=== PATIENT | female | born 1970 | race Caucasian/White ===

== ENCOUNTER → 2016-09-29 | Outpatient (CLI) | payer OTHER | END | disposition home or self-care (01) | LOC: LABWHC1 10:49 | PROVIDERS: ATTEND Internal Medicine Critical Care Medicine | DX: J45.901 Unspecified asthma with (acute) exacerbation (principal) | CPT/HCPCS: 36415; 82785 ==

== ENCOUNTER → 2016-11-16 | Outpatient (CLI) | payer OTHER ==
[2016-11-16 10:37] LABS: Basophils % (A) 1 %; CH 32.9; CHCM 34.1; Eosinophils # (A) 0.2 k/uL (0-0.7); Eosinophils % (A) 4 %; HCT 42.6 % (34.0-46.0); HDW 2.53; Luc # (Auto) 0.13; Luc % (Auto) 3; Lymphocytes # (A) 1.9 k/uL (1.0-4.8); Lymphocytes % (A) 38 %; MCH 31.9 pg (25.0-35.0); MCHC 32.9 g/dL (31.0-37.0); MCV 96.8 fL (80.0-100.0); Mean Platelet Volume 6.6; Monocytes # (A) 0.3 k/uL (0-1.0); Monocytes % (A) 5 %; Neutrophils # (A) 2.5 k/uL (1.3-7.7); Neutrophils % (A) 50 %; RDW 13.3 % (11.5-15.5); WBC 5.1 k/uL (3.8-10.6); WBC (Perox) 4.93
[2016-11-16 11:14] LABS: ALT 28 U/L (9-52); AST 20 U/L (14-36); Alkaline Phosphatase 80 U/L (38-126); Anion Gap 10 mmol/L; Blood Urea Nitrogen 10 mg/dL (7-17); Calcium 9.2 mg/dL (8.4-10.2); Carbon Dioxide 26 mmol/L (22-30); Chloride 107 mmol/L (98-107); Cholesterol 215 mg/dL (<200); Glucose 77 mg/dL (74-99); HDL Cholesterol 95 mg/dL (40-60); Non-African American GFR(MDRD) >60 (>60 ml/min/1.73 sqM); Potassium 5.1 mmol/L (3.5-5.1); Sodium 143 mmol/L (137-145); Total Bilirubin 0.6 mg/dL (0.2-1.3); Total Protein 7.3 g/dL (6.3-8.2); Triglycerides 59 mg/dL (<150)
== END | disposition home or self-care (01) ==
LOC: LABWHC1 09:17
PROVIDERS: ATTEND Family Medicine
DX: Z00.00 Encounter for general adult medical examination without abnormal findings (principal)
CPT/HCPCS: 36415; 80053; 80061; 85025

== ENCOUNTER → 2017-02-03 | Outpatient (CLI) | payer OTHER ==
--- NOTE | 2017-02-08 10:44 | MM ---
Reason for exam: screening (asymptomatic). Last mammogram was performed 4 years and 8 months ago. Physical Findings: A clinical breast exam by your physician is recommended on an annual basis and results should be correlated with mammographic findings. MG 3D Screening Mammo W/Cad Bilateral CC and MLO view(s) were taken. Prior study comparison: June 07, 2012, bilateral breast ultrasound work-up. The breast tissue is extremely dense which could obscure a lesion on mammography. Finding: There are typically benign diffuse calcifications in both breasts. ASSESSMENT: Benign, BI-RAD 2 RECOMMENDATION: Routine screening mammogram of both breasts in 1 year.
== END | disposition home or self-care (01) ==
LOC: RADMAMWWP 12:43
PROVIDERS: ATTEND Family Medicine
DX: Z12.31 Encounter for screening mammogram for malignant neoplasm of breast (principal)
CPT/HCPCS: 77063; G0202

== ENCOUNTER → 2017-12-21 | Outpatient (CLI) | payer OTHER ==
--- NOTE | 2017-12-21 11:21 | MM ---
Reason for exam: clinical finding. Last mammogram was performed 11 months ago. Indicated problem(s): palpable abnormality in the left breast. Physical Findings: Nurse Summary: 5-6cm nodule in the left breast at 5 o'clock (nurse viktor). MG 3D Diag Mammo W/Cad LT MLO, CC, and LM view(s) were taken of the left breast. Prior study comparison: February 03, 2017, bilateral MG 3d screening mammo w/cad. May 31, 2012, bilateral digital screening mammo w/CAD. The breast tissue is heterogeneously dense. This may lower the sensitivity of mammography. Finding: There are typically benign round, regional, diffuse calcifications in the left breast. There is no discrete abnormality. These results were verbally communicated with the patient and result sheet given to the patient on 12/21/17. ASSESSMENT: Incomplete: need additional imaging evaluation, BI-RAD 0 RECOMMENDATION: Ultrasound of the left breast.
--- NOTE | 2017-12-21 11:23 | USB ---
Reason for exam: additional evaluation requested from abnormal screening. US Breast Limited LT Left limited breast ultrasound including focal area of concern, retroareolar and axilla demonstrates a 1.0 x 1.1 x 0.9cm cystic cluster at 4 o'clock, ductal ectasia at 6 o'clock and at posterior nipple. Favor post inflammatory change. These results were verbally communicated with the patient and result sheet given to the patient on 12/21/17. ASSESSMENT: Probably benign, BI-RAD 3 RECOMMENDATION: Follow-up diagnostic mammogram of the left breast in 3 months. (after medical treatment) Manage patient on a clinical basis.
== END | disposition home or self-care (01) ==
LOC: RADMAMWWP 09:36
PROVIDERS: ATTEND Family Medicine
DX: N64.52 Nipple discharge (principal); N64.4 Mastodynia; N63.20 Unspecified lump in the left breast, unspecified quadrant; R92.8 Other abnormal and inconclusive findings on diagnostic imaging of breast
CPT/HCPCS: 77061; 77065

== ENCOUNTER → 2018-03-02 | Outpatient (CLI) | payer OTHER ==
--- NOTE | 2018-03-03 14:46 | MM ---
Reason for exam: screening (asymptomatic). Last mammogram was performed 2 months ago. Physical Findings: A clinical breast exam by your physician is recommended on an annual basis and results should be correlated with mammographic findings. MG 3D Screening Mammo W/Cad Bilateral CC and MLO view(s) were taken. Prior study comparison: December 21, 2017, left breast MG 3d diag mammo w/cad LT. February 03, 2017, bilateral MG 3d screening mammo w/cad. The breast tissue is heterogeneously dense. This may lower the sensitivity of mammography. Stable benign calcifications. There is no discrete abnormality. No significant changes when compared with prior studies. ASSESSMENT: Benign, BI-RAD 2 RECOMMENDATION: Routine screening mammogram of both breasts in 1 year.
== END | disposition home or self-care (01) ==
LOC: RADMAMWWP 16:37
PROVIDERS: ATTEND Family Medicine
DX: Z12.31 Encounter for screening mammogram for malignant neoplasm of breast (principal)
CPT/HCPCS: 77063; 77067

== ENCOUNTER 2018-10-10 10:09 | Inpatient (IN) | payer OTHER ==
[2018-10-10] MEDS: IPRATROPIUM-ALBUTEROL 3 ML NEB INHALATION SCH ×3 (11:38→19:43)
[2018-10-10] MEDS ORDERED: IPRATROPIUM-ALBUTEROL 3 ML NEB INHALATION PRN (11:45)
[2018-10-10] MEDS: SODIUM CHLORIDE 0.9% 1,000 ML IV SCH ×2 (12:08→23:35)
[2018-10-10] MEDS: methylPREDNISolone SOD SUCCI 125 MG/2 ML VIAL IV SCH ×3 (12:08→23:34)
[2018-10-10] MEDS: AZITHROMYCIN 500 MG TAB PO SCH (12:11)
[2018-10-10] MEDS: BENZONATATE 100 MG CAP PO SCH ×2 (12:11→21:10)
[2018-10-10] MEDS: ACETAMINOPHEN TAB 325 MG TAB PO PRN ×2 (12:16→21:14)
[2018-10-10 12:29] VITALS: BMI 29.9
[2018-10-10 12:33] LABS: Basophils % (A) 1 %; Eosinophils # (A) 0.6 k/uL (0-0.7); Eosinophils % (A) 8 %; HCT 36.9 % (34.0-46.0); Lymphocytes # (A) 2.3 k/uL (1.0-4.8); Lymphocytes % (A) 31 %; MCH 31.5 pg (25.0-35.0); MCHC 35.1 g/dL (31.0-37.0); MCV 89.9 fL (80.0-100.0); Mean Platelet Volume 7.2; Monocytes # (A) 0.3 k/uL (0-1.0); Monocytes % (A) 4 %; Neutrophils # (A) 4.1 k/uL (1.3-7.7); Neutrophils % (A) 55 %; Platelet Count 256 k/uL (150-450); RBC 4.11 m/uL (3.80-5.40); RDW 14.3 % (11.5-15.5); WBC 7.4 k/uL (3.8-10.6)
[2018-10-10 12:38] LABS: ALT 26 U/L (9-52); AST 25 U/L (14-36); Albumin 4.2 g/dL (3.5-5.0); Alkaline Phosphatase 81 U/L (38-126); Anion Gap 12 mmol/L; Blood Urea Nitrogen 7 mg/dL (7-17); Calcium 9.2 mg/dL (8.4-10.2); Carbon Dioxide 20 mmol/L (22-30); Chloride 106 mmol/L (98-107); Glucose 81 mg/dL (74-99); Potassium 3.8 mmol/L (3.5-5.1); Sodium 138 mmol/L (137-145); Total Bilirubin 0.6 mg/dL (0.2-1.3); Total Protein 7.1 g/dL (6.3-8.2)
[2018-10-10] MEDS: PROMETHAZ-COD 6.25-10 MG/5 ML 5 ML CUP PO PRN (14:45)
--- NOTE | 2018-10-10 16:20 | P.CNPUL ---
History of Present Illness Consult date: 10/10/18 Reason for consult: dyspnea, asthma History of present illness: A 47-year-old female patient with known history of severe persistent ALLERGIC yadi ng has mostly maintained on a combination of Advair 500/50 Diskus 1 puff twice stenting at 10 mg by mouth daily. The recent change in the weather the patient became progressively shortness of breath and she was overall utilizing her albuterol rescue inhaler. She came into the office having shortness of breath just dyspnea and wheeze. Chest x-ray showed limited abnormalities. The patient was admitted to the hospital for further care and for further evaluation and treatment of her bronchial asthma. No significant sputum production. No hemoptysis. No pleurisy. No fever. No chills. Influenza screen was negative. She has been very compliant to respiratory medication. Her last hospita lization was more than 4 years ago for the same. She was very much concerning in that she was not getting better even with recurrent and repeated albuterol treatments. She has been treated with Xolair in the past and the medication had to be discontinued because of loss of insurance covers that medication. Her serum IgE level is 1693. She has been utilizing also [id number] antacid and it medication. No eczema. No dermatitis. No heartburn. No nasal polyposis. No aspirin sensitivity. He is able to speak of. This is. Review of Systems Constitutional: Denies chills, Denies fever Eyes: denies as per HPI, denies blurred vision, denies bulging eye, denies decreased vision, denies diplopia, denies discharge, denies dry eye, denies irritation, denies itching, denies pain, denies photophobia, denies loss of peripheral vision, denies loss of vision, denies tunnel vision/blind spots Ears: deny: decreased hearing, ear discharge, earache, tinnitus Ears, nose, mouth and throat: Denies headache, Denies sore throat Breasts: absent: as per HPI, change in shape, gynecomastia, masses, nipple discharge, pain, skin changes, swelling Cardiovascular: Reports decreased exercise tolerance Respiratory: Reports cough, Reports dyspnea, Reports wheezing Gastrointestinal: Denies abdominal pain, Denies diarrhea, Denies nausea, Denies vomiting Genitourinary: Reports as per HPI Menstruation: Reports as per HPI Musculoskeletal: Reports as per HPI Musculoskeletal: absent: ankle pain, ankle stiffness, ankle swelling, as per HPI, elbow pain, elbow stiffness, elbow swelling, foot pain, foot stiffness, foot swelling, hand pain, hand stiffness, hand swelling, hip pain, hip stiffn ess, hip swelling, knee pain, knee stiffness, knee swelling, shoulder pain, shoulder stiffness, shoulder swelling, wrist pain, wrist stiffness, wrist swelling Integumentary: Reports as per HPI Neurological: Reports as per HPI Psychiatric: Reports as per HPI Endocrine: Reports as per HPI Hematologic/Lymphatic: Reports as per HPI Allergic/Immunologic: Reports as per HPI Past Medical History Past Medical History: Asthma Additional Past Medical History / Comment(s): Severe persistent bronchial asthma History of Any Multi-Drug Resistant Organisms: None Reported Past Surgical History: Orthopedic Surgery Additional Past Surgical History / Comment(s): Right Knee Arthroscopic surgery 2 Past Anesthesia/Blood Transfusion Reactions: Motion Sickness Past Psychological History: No Psychological Hx Reported Smoking Status: Former smoker Past Alcohol Use History: Daily Additional Past Alcohol Use History / Comment(s): 2 glasses of wine a day Past Drug Use History: None Reported - Past Family History Mother Family Medical History: Cancer Additional Family Medical History / Comment(s): hx. mom-lung Father Family Medical History: Coronary Artery Disease (CAD), CVA/TIA Medications and Allergies Home Medications Medication Instructions Recorded Confirmed Type Cetirizine HCl [Zyrtec] 10 mg PO DAILY 11/01/13 10/10/18 History Montelukast [Singulair] 10 mg PO HS 11/01/13 10/10/18 History Ibuprofen [Motrin] 400 mg PO TID PRN 11/08/13 10/10/18 History Levalbuterol Nebulized [Xopenex 1.25 mg INHALATION RT-TID PRN 09/10/14 10/10/18 History Nebulized] Fluticasone/Salmeterol [Advair 1 puff INHALATION RT-BID 10/10/18 10/10/18 History 500-50 Diskus] Levalbuterol Hfa Inhaler [Xopenex 1 puff INHALATION RT-Q6H PRN 10/10/18 10/10/18 History Hfa Inhaler] Allergies Allergy/AdvReac Type Severity Reaction Status Date / Time No Known Allergies Allergy Verified 10/10/18 13:24 Physical Exam Vitals: Vital Signs Temp Pulse Pulse Resp BP Pulse Ox 10/10/18 15:46 78 18 10/10/18 15:35 75 18 98 10/10/18 14:50 24 10/10/18 12:35 97.6 F 78 20 135/94 100 10/10/18 11:52 90 10/10/18 11:40 86 99 Intake and Output 10/10/18 10/10/18 10/10/18 06:59 14:59 22:59 Intake Total 120 Balance 120 Intake: Oral 120 Other: Weight 74.2 kg The patient appeared well nourished and normally developed. Vital signs as documented. Head exam is unremarkable. No scleral icterus or corneal arcus noted. Neck is without jugular venous distension, thyromegaly, or carotid bruits. Carotid upstrokes are brisk bilaterally. Lungs are showing diminished breath sounds along with prolongation of expiratory phase of breathing and diffuse expiratory wheezes throughout the lung garcia bilaterally.. Cardiac exam reveals the PMI to be normally sized and situated. Rhythm is regular. First and second heart sounds normal. No murmurs, rubs or gallops. Abdominal exam reveals normal bowel sounds, no masses, no organomegaly and no aortic enlargement. Extremities are nonedematous and both femoral and pedal pulses are normal.Examination of the skin revealed no evidence of significant rashes, suspicious appearing nevi or other concerning lesions. Neurologically the patient is awake and alert and is no focal neurological deficit. Psychiatric the patient has no anxiety or depression. Results - Laboratory Findings CBC and BMP: 10/10/18 12:00 10/10/18 12:00 Abnormal lab findings: Abnormal Labs 10/10/18 12:00 Carbon Dioxide 20 L - Diagnostic Findings Chest x-ray: image reviewed Assessment and Plan Plan: Assessment 1 acute asthma exacerbation with secondary shortness of breath 2 severe persistent bronchial asthma 3 known history of chronic involvement of ALLERGIES with an elevated IgE level of 1693 and the patient has had excellent response to Xolair in the past. PLAN Continue DuoNeb nebulized seems [id number]. Continue Pulmicort and Perforomist nebulized treatments twice a day. IV Solu Medrol 60 every 6 hours. Empiric antibiotic coverage with Zithromax. The patient or the feeling better. We'll continue to follow. Outpatient medications adequate for now. We'll try to for this patient for anti-IgE treatment knowing that her serum IgE level is elevated and her asthma is under suboptimal control and abscess of this medication. Otherwise she is on accommodation abdomen single disease to be continued. We'll continue to follow.
[2018-10-10] MEDS: BUDESONIDE 1 MG/2 ML NEBU INHALATION SCH (19:43)
[2018-10-10] MEDS: FORMOTEROL FUMARATE 20 MCG/2 ML NEBU INHALATION SCH (19:43)
[2018-10-10 20:39] LABS: Glucose,Whole Blood 209 mg/dL (75-99)
[2018-10-10] MEDS: INSULIN ASPART (NovoLOG) 100 UNIT/ML VIAL SQ SCH (21:09)
[2018-10-10] MEDS: MONTELUKAST 10 MG TAB PO SCH (21:09)
[2018-10-11] MEDS: PROMETHAZ-COD 6.25-10 MG/5 ML 5 ML CUP PO PRN ×2 (06:10→23:15)
[2018-10-11] MEDS: methylPREDNISolone SOD SUCCI 125 MG/2 ML VIAL IV SCH ×4 (06:11→23:07)
[2018-10-11 07:00] LABS: Glucose,Whole Blood 160 mg/dL (75-99)
[2018-10-11] MEDS: FORMOTEROL FUMARATE 20 MCG/2 ML NEBU INHALATION SCH ×2 (07:01→19:17)
[2018-10-11] MEDS: IPRATROPIUM-ALBUTEROL 3 ML NEB INHALATION SCH ×4 (07:01→19:17)
[2018-10-11] MEDS: BUDESONIDE 1 MG/2 ML NEBU INHALATION SCH ×2 (07:01→19:17)
[2018-10-11] MEDS: INSULIN ASPART (NovoLOG) 100 UNIT/ML VIAL SQ SCH ×4 (07:24→20:42)
[2018-10-11] MEDS: SODIUM CHLORIDE 0.9% 1,000 ML IV SCH ×2 (08:33→20:44)
[2018-10-11] MEDS: BENZONATATE 100 MG CAP PO SCH ×3 (08:34→20:41)
[2018-10-11] MEDS: AZITHROMYCIN 500 MG TAB PO SCH (08:34)
[2018-10-11] MEDS: ACETAMINOPHEN TAB 325 MG TAB PO PRN ×2 (08:38→17:20)
--- NOTE | 2018-10-11 09:47 | XR ---
EXAMINATION TYPE: XR chest 2V DATE OF EXAM: 10/11/2018 COMPARISON: 07/01/2012 HISTORY: Chest pain TECHNIQUE: Frontal and lateral views of the chest are obtained. FINDINGS: Infiltrate right medial lung base may reflect pneumonia. Correlate clinically. No evidence for pneumothorax. No pleural effusion. The cardiac silhouette size is within normal limits. The osseous structures are grossly intact. IMPRESSION: 1. Infiltrate right medial lung base may reflect pneumonia. Correlate clinically.
[2018-10-11 12:20] LABS: Glucose,Whole Blood 135 mg/dL (75-99)
--- NOTE | 2018-10-11 12:45 | P.HPIM ---
History of Present Illness H&P Date: 10/11/18 Chief Complaint: Shortness of breath This is a 47-year-old white female well-known to my practice. She has not seen very often as her main problem is severe persistent asthma. She follows up with Dr. Tao in his group for pulmonology. She is on Advair discus 500/50 along with updrafts as needed. She also takes singular. Apparently she became more short of breath over the past several days. She was seen in the pulmonologists office and sent for a direct admission. Currently this morning her complaints are mostly shortness of breath. He does have oxygen flowing at 2 L/m via nasal cannula. She denies any other complaints. She denies any chest pains, pressures, nausea, vomiting, diarrhea, constipation. He is currently on DuoNeb updrafts, Solu-Medrol, performance, Pulmicort, Tessalon Perles, azithromycin. Review of Systems All systems: negative Past Medical History Past Medical History: Asthma Additional Past Medical History / Comment(s): Severe persistent bronchial asthma History of Any Multi-Drug Resistant Organisms: None Reported Past Surgical History: Orthopedic Surgery Additional Past Surgical History / Comment(s): Right Knee Arthroscopic surgery 2 Past Anesthesia/Blood Transfusion Reactions: Motion Sickness Past Psychological History: No Psychological Hx Reported Smoking Status: Former smoker Past Alcohol Use History: Daily Additional Past Alcohol Use History / Comment(s): 2 glasses of wine a day Past Drug Use History: None Reported - Past Family History Mother Family Medical History: Cancer Additional Family Medical History / Comment(s): hx. mom-lung Father Family Medical History: Coronary Artery Disease (CAD), CVA/TIA Medications and Allergies Home Medications Medication Instructions Recorded Confirmed Type Cetirizine HCl [Zyrtec] 10 mg PO DAILY 11/01/13 10/10/18 History Montelukast [Singulair] 10 mg PO HS 11/01/13 10/10/18 History Ibuprofen [Motrin] 400 mg PO TID PRN 11/08/13 10/10/18 History Levalbuterol Nebulized [Xopenex 1.25 mg INHALATION RT-TID PRN 09/10/14 10/10/18 History Nebulized] Fluticasone/Salmeterol [Advair 1 puff INHALATION RT-BID 10/10/18 10/10/18 History 500-50 Diskus] Levalbuterol Hfa Inhaler [Xopenex 1 puff INHALATION RT-Q6H PRN 10/10/18 10/10/18 History Hfa Inhaler] Allergies Allergy/AdvReac Type Severity Reaction Status Date / Time No Known Allergies Allergy Verified 10/10/18 13:24 Physical Exam Vitals: Vital Signs Temp Pulse Pulse Pulse Resp BP BP 10/11/18 11:18 114 H 10/11/18 11:06 108 H 10/11/18 08:26 97.9 F 132 H 20 129/76 10/11/18 08:00 120 H 10/11/18 07:26 124 H 10/11/18 07:16 116 H 10/11/18 07:15 116 H 10/11/18 07:01 110 H 10/11/18 03:55 114 H 22 10/10/18 23:55 124 H 10/10/18 23:45 120 H 10/10/18 23:38 98 F 115 H 18 135/90 10/10/18 20:55 97.4 F L 121 H 20 142/76 10/10/18 20:06 88 18 10/10/18 19:58 84 18 10/10/18 19:43 79 18 10/10/18 17:37 97.2 F L 116 H 115 H 22 10/10/18 16:59 127 H 20 147/73 10/10/18 15:46 78 18 10/10/18 15:35 75 18 10/10/18 14:50 92 24 Pulse Ox 10/11/18 11:18 10/11/18 11:06 10/11/18 08:26 98 10/11/18 08:00 10/11/18 07:26 10/11/18 07:16 10/11/18 07:15 10/11/18 07:01 100 10/11/18 03:55 94 L 10/10/18 23:55 10/10/18 23:45 10/10/18 23:38 96 10/10/18 20:55 96 10/10/18 20:06 10/10/18 19:58 10/10/18 19:43 10/10/18 17:37 100 10/10/18 16:59 96 10/10/18 15:46 10/10/18 15:35 98 10/10/18 14:50 Intake and Output 10/10/18 10/11/18 10/11/18 22:59 06:59 14:59 Intake Total 500 1250 Balance 500 1250 Intake: Intake, IV Titration 1000 Amount Sodium Chloride 0.9% 1, 1000 000 ml @ 75 mls/hr IV . [id number] [facility] Rx#:[id number] Oral 500 250 Other: Voiding Method Toilet Toilet # Voids 1 2 GENERAL: Well-appearing, well-nourished and in no acute distress. HEAD: Atraumatic, normocephalic. EYES: Pupils equal round and reactive to light, extraocular movements intact, sclera anicteric, conjunctiva are normal. ENT:nares patent, oropharynx clear without exudates. Moist mucous membranes. NECK: Normal range of motion, supple without lymphadenopathy or JVD, no thyromegaly LUNGS: Bilateral inspiratory and expiratory wheezes, intermittently. Coarse lung sounds bilaterally with no rales or crackles. HEART: Regular rate and rhythm without murmurs, rubs or gallops.S1S2 Normal ABDOMEN: Soft, nontender, normoactive bowel sounds. No guarding, no rebound. No masses appreciated. EXTREMITIES: Normal range of motion, no pitting or edema. No clubbing or cyanosis. NEUROLOGICAL: Cranial nerves II through XII grossly intact. Normal speech, normal gait. PSYCH: Normal mood, normal affect. SKIN: Warm, Dry, normal turgor, no rashes or lesions noted. Results CBC & Chem 7: 10/10/18 12:00 10/10/18 12:00 Labs: Abnormal Lab Results - Last 24 Hours (Table) 10/10/18 10/11/18 10/11/18 Range/Units 20:36 06:59 12:14 POC Glucose (mg/dL) 209 H 160 H 135 H (75-99) mg/dL Chest x-ray: report reviewed Thrombosis Risk Factor Assmnt - DVT/VTE Prophylaxis DVT/VTE Prophylaxis: Low risk, early ambulation encouraged - Choose All That Apply Any of the Below Risk Factors Present?: Yes Each Factor Represents 1 point: Age 41-60 years, Obesity (BMI >25) Other Risk Factors: No Other congenital or acquired thrombophilia - If yes, enter type in comment: No Thrombosis Risk Factor Assessment Total Risk Factor Score: 2 Thrombosis Risk Factor Assessment Level: Low Risk Assessment and Plan (1) Acute exacerbation of asthma with allergic rhinitis Current Visit: Yes Status: Acute Code(s): J45.901 - UNSPECIFIED ASTHMA WITH (ACUTE) EXACERBATION SNOMED Code(s): 19308661760858 (2) Status asthmaticus Current Visit: Yes Status: Acute Code(s): J45.902 - UNSPECIFIED ASTHMA WITH STATUS ASTHMATICUS SNOMED Code(s): 328870897 Plan: Currently remain on her home medications as ordered by pulmonology of azithromycin, Tessalon Perles, Pulmicort, performance, DuoNeb updrafts, Solu- Medrol, Singulair and IV fluids at 75 mL an hour. She is on insulin scale for the steroid use. We'll repeat labs in a.m. Reevaluate her then.
--- NOTE | 2018-10-11 13:28 | P.PN ---
Subjective Progress Note Date: 10/11/18 Principal diagnosis: Acute asthma exacerbation and dyspnea A 47-year-old female patient with known history of severe persistent ALLERGIC lung has mostly maintained on a combination of Advair 500/50 Diskus 1 puff twice stenting at 10 mg by mouth daily. The recent change in the weather the patient became progressively shortness of breath and she was overall utilizing her alb uterol rescue inhaler. She came into the office having shortness of breath just dyspnea and wheeze. Chest x-ray showed limited abnormalities. The patient was admitted to the hospital for further care and for further evaluation and treatment of her bronchial asthma. No significant sputum production. No hemoptysis. No pleurisy. No fever. No chills. Influenza screen was negative. She has been very compliant to respiratory medication. Her last hospitalization was more than 4 years ago for the same. She was very much concerning in that she was not getting better even with recurrent and repeated albuterol treatments. She has been treated with Xolair in the past and the medication had to be discontinued because of loss of insurance covers that medication. Her serum IgE level is 1693. She has been utilizing also [id number] antacid and it medication. No eczema. No dermatitis. No heartburn. No nasal polyposis. No aspirin sensitivity. On 10/11/2018 patient is seen in follow-up. She is feeling better, breathing better, remains on 3 L of oxygen, with pulse ox of 98%, no fever or chills, tachycardic, heart rate is at 111 BPM, although tachycardia has improved from yesterday, when patient's rate was up to 130 BPM. Lung sounds are still bronchospastic, but improving. Patient is on IV steroids, nebulized bronchodilators, Zithromax, Pulmicort and Perforomist. Not quite ready for discharge, we'll need another 24-48 hours of inpatient treatment. Objective - Vital Signs Vital signs: Vital Signs Temp 97.4 F L 10/11/18 12:13 Pulse 111 H 10/11/18 12:13 Resp 24 10/11/18 12:13 BP 126/82 10/11/18 12:13 Pulse Ox 98 10/11/18 12:13 Intake & Output 10/10/18 10/11/18 10/11/18 18:59 06:59 18:59 Intake Total 120 1750 Balance 120 1750 Weight 74.2 kg Intake: Intake, IV Titration 1000 Amount Sodium Chloride 0.9% 1, 1000 000 ml @ 75 mls/hr IV . [id number] [facility] Rx#:[id number] Oral 120 750 Other: Voiding Method Toilet # Voids 2 - Exam GENERAL EXAM: Alert, pleasant, 47-year-old white female on 3 L of oxygen comfortable in no apparent distress. HEAD: Normocephalic/atraumatic. EYES: Normal reaction of pupils, equal size. Conjunctiva pink, sclera white. NOSE: Clear with pink turbinates. THROAT: No erythema or exudates. NECK: No masses, no JVD, no thyroid enlargement, no adenopathy. CHEST: No chest wall deformity. Symmetrical expansion. LUNGS: Equal air entry with diffuse expiratory wheezes, has improved from yesterday CVS: Regular rate and rhythm, normal S1 and S2, no gallops, no murmurs, no rubs ABDOMEN: Soft, nontender. No hepatosplenomegaly, normal bowel sounds, no guarding or rigidity. EXTREMITIES: No clubbing, no edema, no cyanosis, 2+ pulses and upper and lower extremities. MUSCULOSKELETAL: Muscle strength and tone normal. SPINE: No scoliosis or deformity SKIN: No rashes CENTRAL NERVOUS SYSTEM: Alert and oriented -3. No focal deficits, tone is no rmal in all 4 extremities. PSYCHIATRIC: Alert and oriented -3. Appropriate affect. Intact judgment and insight. - Labs CBC & Chem 7: 10/10/18 12:00 10/10/18 12:00 Labs: Abnormal Lab Results - Last 24 Hours (Table) 10/10/18 10/11/18 10/11/18 Range/Units 20:36 06:59 12:14 POC Glucose (mg/dL) 209 H 160 H 135 H (75-99) mg/dL Assessment and Plan Plan: Assessment: 1 acute asthma exacerbation with secondary shortness of breath 2 severe persistent bronchial asthma 3 known history of chronic involvement of ALLERGIES with an elevated IgE level of 1693 and the patient has had excellent response to Xolair in the past. Plan: Continue the antibiotics, continue IV steroids, nebulized bronchodilators. Patient is improving, not back to baseline, still remains bronchus spastic and dyspneic with exertion. Will need another 24-48 hours of inpatient treatment. I performed a history & physical examination of the patient and discussed their management with my nurse practitioner, Leanne Pérez. I reviewed the nurse practitioner's note and agree with the documented findings and plan of care. Lung sounds are positive for diffuse wheezes. The findings and the impression was discussed with the patient. I attest to the documentation by the nurse practitioner. Time with Patient: Less than 30
[2018-10-11 17:02] LABS: Glucose,Whole Blood 131 mg/dL (75-99)
[2018-10-11 20:36] LABS: Glucose,Whole Blood 171 mg/dL (75-99)
[2018-10-11] MEDS: MONTELUKAST 10 MG TAB PO SCH (20:41)
[2018-10-12 06:32] LABS: Glucose,Whole Blood 126 mg/dL (75-99)
[2018-10-12] MEDS: methylPREDNISolone SOD SUCCI 125 MG/2 ML VIAL IV SCH ×3 (06:35→17:30)
[2018-10-12] MEDS: INSULIN ASPART (NovoLOG) 100 UNIT/ML VIAL SQ SCH ×4 (06:35→21:00)
[2018-10-12] MEDS: FORMOTEROL FUMARATE 20 MCG/2 ML NEBU INHALATION SCH ×2 (07:41→21:32)
[2018-10-12] MEDS: IPRATROPIUM-ALBUTEROL 3 ML NEB INHALATION SCH ×4 (07:41→21:32)
[2018-10-12] MEDS: BUDESONIDE 1 MG/2 ML NEBU INHALATION SCH ×2 (07:41→21:32)
[2018-10-12] MEDS: BENZONATATE 100 MG CAP PO SCH ×3 (08:14→22:06)
[2018-10-12] MEDS: SODIUM CHLORIDE 0.9% 1,000 ML IV SCH ×2 (08:14→22:07)
[2018-10-12] MEDS: PROMETHAZ-COD 6.25-10 MG/5 ML 5 ML CUP PO PRN ×2 (08:14→17:30)
[2018-10-12] MEDS: AZITHROMYCIN 500 MG TAB PO SCH (08:14)
[2018-10-12 08:36] LABS: Basophils % (A) 0 %; Eosinophils # (A) 0.1 k/uL (0-0.7); Eosinophils % (A) 0 %; HCT 38.6 % (34.0-46.0); HGB 12.4 gm/dL (11.4-16.0); Lymphocytes # (A) 1.2 k/uL (1.0-4.8); Lymphocytes % (A) 10 %; MCH 30.3 pg (25.0-35.0); MCHC 32.2 g/dL (31.0-37.0); MCV 94.1 fL (80.0-100.0); Mean Platelet Volume 6.9; Monocytes # (A) 0.2 k/uL (0-1.0); Monocytes % (A) 2 %; Neutrophils # (A) 11.4 k/uL (1.3-7.7); Neutrophils % (A) 88 %; Platelet Count 275 k/uL (150-450); RDW 14.2 % (11.5-15.5); WBC 12.9 k/uL (3.8-10.6)
[2018-10-12 08:51] LABS: Anion Gap 8 mmol/L; Blood Urea Nitrogen 10 mg/dL (7-17); Calcium 9.4 mg/dL (8.4-10.2); Carbon Dioxide 23 mmol/L (22-30); Chloride 108 mmol/L (98-107); Glucose 120 mg/dL (74-99); Potassium 3.9 mmol/L (3.5-5.1); Sodium 139 mmol/L (137-145)
[2018-10-12 12:09] LABS: Glucose,Whole Blood 118 mg/dL (75-99)
--- NOTE | 2018-10-12 14:40 | P.PN ---
Subjective Progress Note Date: 10/12/18 Interval history: This is a 47-year-old white female well-known to my practice. She has not seen very often as her main problem is severe persistent asthma. She follows up with Dr. Tao in his group for pulmonology. She is on Advair discus 500/50 along with updrafts as needed. She also takes singular. Apparently she became more short of breath over the past several days. She was seen in the pulmonologists office and sent for a direct admission. Currently this morning her complaints are mostly shortness of breath. He does have oxygen flowing at 2 L/m via nasal cannula. She denies any other complaints. She denies any chest pains, pressures, nausea, vomiting, diarrhea, constipation. He is currently on DuoNeb updrafts, Solu-Medrol, performance, Pulmicort, Tessalon Perles, azithromycin. 10/12/2018 maintained on nebulized bronchodilators, Pulmicort, Perforomist ,IV steroids , Zithromax , breathing improving. Faint bibasilar wheezing, less bronchospastic. Maintaining O2 sats of 98% on room air. Tachycardia improving, currently in the low 100s. Afebrile. Objective - Vital Signs Vital signs: Vital Signs Temp 97.8 F 10/12/18 12:32 Pulse 110 H 10/12/18 12:32 Resp 20 10/12/18 12:32 BP 116/69 10/12/18 12:32 Pulse Ox 98 10/12/18 12:32 Intake & Output 10/11/18 10/12/18 10/12/18 18:59 06:59 18:59 Intake Total 1999 Balance 1999 Intake: Intake, IV Titration 1000 Amount Sodium Chloride 0.9% 1, 1000 000 ml @ 75 mls/hr IV . [id number] BERNARD Rx#:[id number] Oral 1000 Other: Voiding Method Toilet # Voids 2 5 1 - Exam PHYSICAL EXAM: VITAL SIGNS: As above GENERAL: Sitting up in bed, no acute distress HEENT: Conjunctivae normal. eyes normal. NECK: No JVD. No thyroid enlargement. No LNs CARDIOVASCULAR: S1, S2 normal . No murmur, rubs or gallops RESPIRATION: Breath sounds diminished in the bases. improving fine bibasilar wheezing ,No rhonchi or crackles. ABDOMEN: Soft, nontender . No guarding.no masses palpable.Bowel sounds heard.No guarding, no rigidity LEGS: No edema. no swelling PSYCHIATRY: Alert and oriented -3, mood and affect normal. NERVOUS SYSTEM: Cranial N 2-12 grossly normal. Moves all 4 limbs. Diffuse weakness No focal deficits. No sensory deficit. Skin: no rashes, no lesions noted Joints: No active swelling. No inflammation. - Labs CBC & Chem 7: 10/12/18 08:01 10/12/18 08:01 Labs: Abnormal Lab Results - Last 24 Hours (Table) 10/11/18 10/11/18 10/12/18 Range/Units 16:59 20:34 06:29 WBC (3.8-10.6) k/uL Neutrophils # (1.3-7.7) k/uL Chloride (98-107) mmol/L Glucose (74-99) mg/dL POC Glucose (mg/dL) 131 H 171 H 126 H (75-99) mg/dL 10/12/18 10/12/18 10/12/18 Range/Units 08:01 08:01 11:57 WBC 12.9 H (3.8-10.6) k/uL Neutrophils # 11.4 H (1.3-7.7) k/uL Chloride 108 H (98-107) mmol/L Glucose 120 H (74-99) mg/dL POC Glucose (mg/dL) 118 H (75-99) mg/dL Assessment and Plan Assessment: (1) Acute exacerbation of asthma with allergic rhinitis Current Visit: Yes Status: Acute Code(s): J45.901 - UNSPECIFIED ASTHMA WITH (ACUTE) EXACERBATION SNOMED Code(s): 27736538491464 (2) Status asthmaticus Current Visit: Yes Status: Acute Code(s): J45.902 - UNSPECIFIED ASTHMA WITH STATUS ASTHMATICUS SNOMED Code(s): 511352785 Plan: Continuing current medication regime ,monitoring and symptomatic treatment. M aintain nebulized bronchodilators, antibiotics, steroids. Increase ambulation as tolerated. Breathing continues to improve, potential discharge planning in progress for tomorrow pending pulmonary clearance . The impression and plan of care has been dictated as directed. : I performed a history and examination of this patient, discussed the same with the dictator. I agree with the dictator's note ,documented as a scribe. Any additional findings or plans will be noted.
--- NOTE | 2018-10-12 14:46 | P.PN ---
Subjective Progress Note Date: 10/12/18 Principal diagnosis: Acute asthma exacerbation and dyspnea A 47-year-old female patient with known history of severe persistent ALLERGIC lung has mostly maintained on a combination of Advair 500/50 Diskus 1 puff twice stenting at 10 mg by mouth daily. The recent change in the weather the patient became progressively shortness of breath and she was overall utilizing her alb uterol rescue inhaler. She came into the office having shortness of breath just dyspnea and wheeze. Chest x-ray showed limited abnormalities. The patient was admitted to the hospital for further care and for further evaluation and treatment of her bronchial asthma. No significant sputum production. No hemoptysis. No pleurisy. No fever. No chills. Influenza screen was negative. She has been very compliant to respiratory medication. Her last hospitalization was more than 4 years ago for the same. She was very much concerning in that she was not getting better even with recurrent and repeated albuterol treatments. She has been treated with Xolair in the past and the medication had to be discontinued because of loss of insurance covers that medication. Her serum IgE level is 1693. She has been utilizing also [id number] antacid and it medication. No eczema. No dermatitis. No heartburn. No nasal polyposis. No aspirin sensitivity. On 10/11/2018 patient is seen in follow-up. She is feeling better, breathing better, remains on 3 L of oxygen, with pulse ox of 98%, no fever or chills, tachycardic, heart rate is at 111 BPM, although tachycardia has improved from yesterday, when patient's rate was up to 130 BPM. Lung sounds are still bronchospastic, but improving. Patient is on IV steroids, nebulized bronchodilators, Zithromax, Pulmicort and Perforomist. Not quite ready for discharge, we'll need another 24-48 hours of inpatient treatment. On 10/12/2018 patient seen in follow-up on pediatric unit. She is awake and alert, she states her breathing is improving, lung sounds are sounding better, still has some Minich breath sounds, but better air entry noted bilaterally, not coughing as much. Patient was able to get up, and take a shower, tolerated ac tivity well, she is wearing her oxygen intermittently, air pulse ox is 98%, no fever or chills, but a tachycardic with a rate of 110 BPM, but overall she states she is feeling better, less bronchospastic, less coughing spells. She will need another 24 hours of inpatient treatment, will continue with current treatment, IV steroids, Pulmicort, Perforomist, cough syrup, and Zithromax Objective - Vital Signs Vital signs: Vital Signs Temp 97.8 F 10/12/18 12:32 Pulse 110 H 10/12/18 12:32 Resp 20 10/12/18 12:32 BP 116/69 10/12/18 12:32 Pulse Ox 98 10/12/18 12:32 Intake & Output 10/11/18 10/12/18 10/12/18 18:59 06:59 18:59 Intake Total 1999 Balance 1999 Intake: Intake, IV Titration 1000 Amount Sodium Chloride 0.9% 1, 1000 000 ml @ 75 mls/hr IV . [id number] BERNARD Rx#:[id number] Oral 1000 Other: Voiding Method Toilet # Voids 2 5 1 - Exam GENERAL EXAM: Alert, pleasant, 47-year-old white female on 2 L of oxygen comfortable in no apparent distress. HEAD: Normocephalic/atraumatic. EYES: Normal reaction of pupils, equal size. Conjunctiva pink, sclera white. NOSE: Clear with pink turbinates. THROAT: No erythema or exudates. NECK: No masses, no JVD, no thyroid enlargement, no adenopathy. CHEST: No chest wall deformity. Symmetrical expansion. LUNGS: Equal air entry with diminished breath sounds, but improved air entry noted bilaterally, less coughing with deep breathing CVS: Regular rate and rhythm, normal S1 and S2, no gallops, no murmurs, no rubs ABDOMEN: Soft, nontender. No hepatosplenomegaly, normal bowel sounds, no guarding or rigidity. EXTREMITIES: No clubbing, no edema, no cyanosis, 2+ pulses and upper and lower extremities. MUSCULOSKELETAL: Muscle strength and tone normal. SPINE: No scoliosis or deformity SKIN: No rashes CENTRAL NERVOUS SYSTEM: Alert and oriented -3. No focal deficits, tone is normal in all 4 extremities. PSYCHIATRIC: Alert and oriented -3. Appropriate affect. Intact judgment and insight. - Labs CBC & Chem 7: 10/12/18 08:01 10/12/18 08:01 Labs: Abnormal Lab Results - Last 24 Hours (Table) 04/09/19 04/09/19 04/10/19 Range/Units 16:59 20:34 06:29 WBC (3.8-10.6) k/uL Neutrophils # (1.3-7.7) k/uL Chloride (98-107) mmol/L Glucose (74-99) mg/dL POC Glucose (mg/dL) 131 H 171 H 126 H (75-99) mg/dL 10/12/18 10/12/18 10/12/18 Range/Units 08:01 08:01 11:57 WBC 12.9 H (3.8-10.6) k/uL Neutrophils # 11.4 H (1.3-7.7) k/uL Chloride 108 H (98-107) mmol/L Glucose 120 H (74-99) mg/dL POC Glucose (mg/dL) 118 H (75-99) mg/dL Assessment and Plan Plan: Assessment: 1 acute asthma exacerbation with secondary shortness of breath 2 severe persistent bronchial asthma 3 known history of chronic involvement of ALLERGIES with an elevated IgE level of 1693 and the patient has had excellent response to Xolair in the past. Plan: Continue current medical treatment, patient is improving, will need another 24 hours of inpatient treatment, was bronchospastic, less coughing spells, she was able to get up and take a shower, tolerated activity fairly well. I performed a history & physical examination of the patient and discussed their management with my nurse practitioner, Leanne Pérez. I reviewed the nurse practitioner's note and agree with the documented findings and plan of care. Lung sounds are positive for diminished breath sounds, with improved aeration. The findings and the impression was discussed with the patient. I attest to the documentation by the nurse practitioner. Time with Patient: Less than 30
[2018-10-12 17:37] LABS: Glucose,Whole Blood 140 mg/dL (75-99)
[2018-10-12] MEDS: MONTELUKAST 10 MG TAB PO SCH (20:30)
[2018-10-12 20:33] LABS: Glucose,Whole Blood 134 mg/dL (75-99)
[2018-10-13] MEDS: methylPREDNISolone SOD SUCCI 125 MG/2 ML VIAL IV SCH ×3 (00:05→11:34)
[2018-10-13] MEDS: PROMETHAZ-COD 6.25-10 MG/5 ML 5 ML CUP PO PRN (00:07)
[2018-10-13 06:29] LABS: Glucose,Whole Blood 131 mg/dL (75-99)
[2018-10-13] MEDS: INSULIN ASPART (NovoLOG) 100 UNIT/ML VIAL SQ SCH ×2 (06:30→11:28)
[2018-10-13] MEDS: BUDESONIDE 1 MG/2 ML NEBU INHALATION SCH (08:12)
[2018-10-13] MEDS: IPRATROPIUM-ALBUTEROL 3 ML NEB INHALATION SCH ×2 (08:12→11:36)
[2018-10-13] MEDS: FORMOTEROL FUMARATE 20 MCG/2 ML NEBU INHALATION SCH (08:12)
[2018-10-13] MEDS: AZITHROMYCIN 500 MG TAB PO SCH (08:42)
[2018-10-13] MEDS: BENZONATATE 100 MG CAP PO SCH (08:42)
[2018-10-13 11:21] LABS: Glucose,Whole Blood 119 mg/dL (75-99)
--- NOTE | 2018-10-13 13:27 | P.PN ---
Subjective Progress Note Date: 10/13/18 Principal diagnosis: Acute asthma exacerbation and dyspnea A 47-year-old female patient with known history of severe persistent ALLERGIC lung has mostly maintained on a combination of Advair 500/50 Diskus 1 puff twice stenting at 10 mg by mouth daily. The recent change in the weather the patient became progressively shortness of breath and she was overall utilizing her alb uterol rescue inhaler. She came into the office having shortness of breath just dyspnea and wheeze. Chest x-ray showed limited abnormalities. The patient was admitted to the hospital for further care and for further evaluation and treatment of her bronchial asthma. No significant sputum production. No hemoptysis. No pleurisy. No fever. No chills. Influenza screen was negative. She has been very compliant to respiratory medication. Her last hospitalization was more than 4 years ago for the same. She was very much concerning in that she was not getting better even with recurrent and repeated albuterol treatments. She has been treated with Xolair in the past and the medication had to be discontinued because of loss of insurance covers that medication. Her serum IgE level is 1693. She has been utilizing also [id number] antacid and it medication. No eczema. No dermatitis. No heartburn. No nasal polyposis. No aspirin sensitivity. On 10/11/2018 patient is seen in follow-up. She is feeling better, breathing better, remains on 3 L of oxygen, with pulse ox of 98%, no fever or chills, tachycardic, heart rate is at 111 BPM, although tachycardia has improved from yesterday, when patient's rate was up to 130 BPM. Lung sounds are still bronchospastic, but improving. Patient is on IV steroids, nebulized bronchodilators, Zithromax, Pulmicort and Perforomist. Not quite ready for discharge, we'll need another 24-48 hours of inpatient treatment. On 10/12/2018 patient seen in follow-up on pediatric unit. She is awake and alert, she states her breathing is improving, lung sounds are sounding better, still has some Minich breath sounds, but better air entry noted bilaterally, not coughing as much. Patient was able to get up, and take a shower, tolerated ac tivity well, she is wearing her oxygen intermittently, air pulse ox is 98%, no fever or chills, but a tachycardic with a rate of 110 BPM, but overall she states she is feeling better, less bronchospastic, less coughing spells. She will need another 24 hours of inpatient treatment, will continue with current treatment, IV steroids, Pulmicort, Perforomist, cough syrup, and Zithromax On 10/13/2018 patient seen in follow-up on the pediatric floor. She continues to improve, less bronchospastic and dyspneic, still having some coughing episodes, but overall good air entry noted bilaterally. Room air pulse ox is 98%, no fever or chills, hemodynamically patient is stable. Patient has been ambulating about the room, tolerating activity well. Patient has been on IV steroids, empiric Invanz, nebulized bronchodilators. She states she is well enough to go home today, from pulmonary perspective patient is stable for discharge home today. Objective - Vital Signs Vital signs: Vital Signs Temp 97.4 F L 10/13/18 08:41 Pulse 100 10/13/18 11:46 Resp 20 10/13/18 08:41 BP 132/81 10/13/18 08:41 Pulse Ox 98 10/13/18 08:41 Intake & Output 10/12/18 10/13/18 10/13/18 18:59 06:59 18:59 Intake Total 750 Balance 750 Intake: Oral 750 Other: # Voids 2 1 - Exam GENERAL EXAM: Alert, pleasant, 47-year-old white female on room air comfortable in no apparent distress. HEAD: Normocephalic/atraumatic. EYES: Normal reaction of pupils, equal size. Conjunctiva pink, sclera white. NOSE: Clear with pink turbinates. THROAT: No erythema or exudates. NECK: No masses, no JVD, no thyroid enlargement, no adenopathy. CHEST: No chest wall deformity. Symmetrical expansion. LUNGS: Equal air entry with diminished breath sounds, but improved air entry not ed bilaterally, less coughing with deep breathing CVS: Regular rate and rhythm, normal S1 and S2, no gallops, no murmurs, no rubs ABDOMEN: Soft, nontender. No hepatosplenomegaly, normal bowel sounds, no guarding or rigidity. EXTREMITIES: No clubbing, no edema, no cyanosis, 2+ pulses and upper and lower extremities. MUSCULOSKELETAL: Muscle strength and tone normal. SPINE: No scoliosis or deformity SKIN: No rashes CENTRAL NERVOUS SYSTEM: Alert and oriented -3. No focal deficits, tone is normal in all 4 extremities. PSYCHIATRIC: Alert and oriented -3. Appropriate affect. Intact judgment and insight. - Labs CBC & Chem 7: 10/12/18 08:01 10/12/18 08:01 Labs: Abnormal Lab Results - Last 24 Hours (Table) 10/12/18 10/12/18 10/13/18 Range/Units 17:24 20:33 06:28 POC Glucose (mg/dL) 140 H 134 H 131 H (75-99) mg/dL 10/13/18 Range/Units 11:20 POC Glucose (mg/dL) 119 H (75-99) mg/dL Assessment and Plan Plan: Assessment: 1 acute asthma exacerbation with secondary shortness of breath 2 severe persistent bronchial asthma 3 known history of chronic involvement of ALLERGIES with an elevated IgE level of 1693 and the patient has had excellent response to Xolair in the past. Plan: Doing well, continues to improve, vital signs are stable, less dyspneic and bronchospastic, no fever or chills, no acute events overnight, from pulmonary perspective patient is stable for discharge home today on outpatient course of antibiotics, steroid taper, patient has a nebulizer machine at home, she normally takes Xopenex, no ipratropium. She will need outpatient follow-up in 7-[address] Sawant. She requested refills for her Advair, Singulair, Xopenex. I performed a history & physical examination of the patient and discussed their management with my nurse practitioner, Leanne Pérez. I reviewed the nurse practitioner's note and agree with the documented findings and plan of care. Lung sounds are positive for diminished breath sounds, with improved aeration. The findings and the impression was discussed with the patient. I attest to the documentation by the nurse practitioner. Time with Patient: Less than 30
--- NOTE | 2018-10-13 13:38 | P.DS ---
Providers Date of admission: 10/10/18 10:53 Expected date of discharge: 10/13/18 Attending physician: Rodríguez Lindsey Consults: 10/11/18 08:00 Consult Physician Routine Consulting Provider: Ezequiel Aguilera Consult Reason/Comments: asthma Do you want consulting provider notified?: Already Contacted Primary care physician: Rodríguez Lindsey [facility] Course: Final Diagnoses: (1) Acute exacerbation of asthma with allergic rhinitis Current Visit: Yes Status: Acute Code(s): J45.901 - UNSPECIFIED ASTHMA WITH (ACUTE) EXACERBATION SNOMED Code(s): 44433158361833 (2) Status asthmaticus Current Visit: Yes Status: Acute Code(s): J45.902 - UNSPECIFIED ASTHMA WITH STATUS ASTHMATICUS SNOMED Code(s): 901968530 Hospital course:This is a 47-year-old white female well-known to my practice. She has not seen very often as her main problem is severe persistent asthma. She follows up with Dr. Tao in his group for pulmonology. She is on Advair discus 500/50 along with updrafts as needed. She also takes singular. Apparently she became more short of breath over the past several days. She was seen in the pulmonologists office and sent for a direct admission. Currently this morning her complaints are mostly shortness of breath. He does have oxygen flowing at 2 L/m via nasal cannula. She denies any other complaints. She denie s any chest pains, pressures, nausea, vomiting, diarrhea, constipation. He is currently on DuoNeb updrafts, Solu-Medrol, performance, Pulmicort, Tessalon Perles, azithromycin. Evaluated by Pulmonary. Maintained on nebulized bronchodilators, Pulmicort, Perforomist ,IV steroids , Zithromax. Significant clinical improvement. Cleared by pulmonary for discharge. Patient is being discharged home in a stable condition with guarded prognosis. EXAM: GENERAL: Alert and oriented 3, no acute distress CARDIOVASCULAR: S1, S2 normal . No murmur, rubs or gallops RESPIRATION: Breath sounds diminished in the bases. no wheezing ,No rhonchi or crackles. ABDOMEN: Soft, nontender . No guarding.no masses palpable.Bowel sounds heard.No guarding, no rigidity NERVOUS SYSTEM: No focal deficits. The impression and plan of care has been dictated as directed. : I performed a history and examination of this patient, discussed the same with the dictator. I agree with the dictator's note ,documented as a scribe. Any additional findings or plans will be noted. Time taken: 35 minutes Patient Condition at Discharge: Stable Plan - Discharge Summary Discharge Rx Participant: Yes New Discharge Prescriptions: New Promethaz-Cod 6.25-10 mg/5 ml [Phenergan with Codeine] 5 ml PO Q6H PRN #60 ml PRN Reason: Cold Symptoms Acetaminophen Tab [Tylenol] 650 mg PO Q6HR PRN tab PRN Reason: Fever and/ or Mild Pain predniSONE 10 mg PO DIRECTED #30 tab Continue Cetirizine HCl [Zyrtec] 10 mg PO DAILY Fluticasone/Salmeterol [Advair 500-50 Diskus] 1 puff INHALATION RT-BID #1 blst.w.dev Montelukast [Singulair] 10 mg PO HS #30 tab Levalbuterol Hfa Inhaler [Xopenex Hfa Inhaler] 1 puff INHALATION RT-Q6H PRN #1 inhaler PRN Reason: Shortness Of Breath Levalbuterol Nebulized [Xopenex Nebulized] 1.25 mg INHALATION RT-TID PRN #90 nebule PRN Reason: Dyspnea Discontinued Ibuprofen [Motrin] 400 mg PO TID PRN PRN Reason: Pain Discharge Medication List Cetirizine HCl [Zyrtec] 10 mg PO DAILY 11/01/13 [History] Acetaminophen Tab [Tylenol] 650 mg PO Q6HR PRN tab 10/13/18 [Rx] Fluticasone/Salmeterol [Advair 500-50 Diskus] 1 puff INHALATION RT-BID #1 blst.w.dev 10/13/18 [Rx] Levalbuterol Hfa Inhaler [Xopenex Hfa Inhaler] 1 puff INHALATION RT-Q6H PRN #1 inhaler 10/13/18 [Rx] Levalbuterol Nebulized [Xopenex Nebulized] 1.25 mg INHALATION RT-TID PRN #90 nebule 10/13/18 [Rx] Montelukast [Singulair] 10 mg PO HS #30 tab 10/13/18 [Rx] Promethaz-Cod 6.25-10 mg/5 ml [Phenergan with Codeine] 5 ml PO Q6H PRN #60 ml 10/13/18 [Rx] predniSONE 10 mg PO DIRECTED #30 tab 10/13/18 [Rx] Follow up Appointment(s)/Referral(s): Rodríguez Lindsey MD [Primary Care Provider] - 10/17/18 3:45 pm Ezequiel Aguilera MD [STAFF PHYSICIAN] - 2 Weeks Ambulatory/Diagnostic Orders: Complete Blood Count w/diff [LAB.AMB] Time Frame: 3 Days, Location: None Selected Activity/Diet/Wound Care/Special Instructions: No further antibiotics recommended as per pulmonary. Diet as tolerated. fluids are always encouraged. good hand washing. Last received Duoneb at 1130 Last received solu medrol (steroid) at 1130 start oral steroids tomorrow. return for outpatient labs in [address] for any worsening of the symptoms that brought you here or any concerns
[2018-10-13 14:06] VITALS: BP 144/95; PULSE 90; RESP 16; TEMP 97.5
== END 2018-10-13 14:08 | disposition home or self-care (01) | DRG 203 ==
LOC: 6PED 10:53
PROVIDERS: ADMIT Family Medicine; ATTEND Family Medicine
DX: J45.52 Severe persistent asthma with status asthmaticus (principal); Z79.899 Other long term (current) drug therapy; Z87.891 Personal history of nicotine dependence; Z82.49 Family history of ischemic heart disease and other diseases of the circulatory system; Z82.3 Family history of stroke; Z80.1 Family history of malignant neoplasm of trachea, bronchus and lung
CPT/HCPCS: 71046; 80048; 80053; 83605; 85025; 87502; 94640; 94760

== ENCOUNTER → 2018-10-17 | Outpatient (CLI) | payer OTHER ==
[2018-10-17 11:07] LABS: Basophils % (A) 0 %; Eosinophils # (A) 0.1 k/uL (0-0.7); Eosinophils % (A) 1 %; HCT 41.8 % (34.0-46.0); HGB 13.7 gm/dL (11.4-16.0); Lymphocytes # (A) 2.1 k/uL (1.0-4.8); Lymphocytes % (A) 18 %; MCHC 32.9 g/dL (31.0-37.0); MCV 94.2 fL (80.0-100.0); Mean Platelet Volume 6.6; Monocytes # (A) 0.5 k/uL (0-1.0); Monocytes % (A) 4 %; Neutrophils # (A) 9.2 k/uL (1.3-7.7); Neutrophils % (A) 77 %; Platelet Count 241 k/uL (150-450); RBC 4.43 m/uL (3.80-5.40); RDW 13.9 % (11.5-15.5)
[2018-10-17 12:31] LABS: Total Eosinophil Count 120 #EOS/uL (150-300)
== END ==
LOC: LABWHC1 10:10
PROVIDERS: ATTEND Internal Medicine Critical Care Medicine
DX: J45.901 Unspecified asthma with (acute) exacerbation (principal); R05 Cough
CPT/HCPCS: 36415; 82785; 85008; 85025

== ENCOUNTER → 2018-10-25 | Outpatient (CLI) | payer OTHER ==
[2018-10-25 17:52] LABS: Basophils % (A) 0 %; Eosinophils # (A) 0.1 k/uL (0-0.7); Eosinophils % (A) 1 %; HCT 41.9 % (34.0-46.0); HGB 13.7 gm/dL (11.4-16.0); Lymphocytes # (A) 3.9 k/uL (1.0-4.8); Lymphocytes % (A) 35 %; MCH 30.7 pg (25.0-35.0); MCHC 32.6 g/dL (31.0-37.0); Mean Platelet Volume 7.2; Monocytes # (A) 0.6 k/uL (0-1.0); Monocytes % (A) 5 %; Neutrophils # (A) 6.5 k/uL (1.3-7.7); Neutrophils % (A) 57 %; Platelet Count 249 k/uL (150-450); RBC 4.46 m/uL (3.80-5.40); RDW 14.4 % (11.5-15.5); WBC 11.3 k/uL (3.8-10.6)
[2018-10-25 18:02] LABS: Anion Gap 5 mmol/L; Blood Urea Nitrogen 11 mg/dL (7-17); Calcium 9.4 mg/dL (8.4-10.2); Carbon Dioxide 30 mmol/L (22-30); Chloride 104 mmol/L (98-107); Glucose 77 mg/dL (74-99); Potassium 4.3 mmol/L (3.5-5.1); Sodium 139 mmol/L (137-145)
--- NOTE | 2018-10-25 18:21 | US ---
EXAMINATION TYPE: US venous doppler duplex LE LT DATE OF EXAM: 10/25/2018 5:56 PM COMPARISON: NONE CLINICAL HISTORY: M79.605 pain in left leg. SIDE PERFORMED: left TECHNIQUE: The lower extremity deep venous system is examined utilizing real time linear array sonog emile with graded compression, doppler sonography and color-flow sonography. VESSELS IMAGED: External Iliac Vein (EIV) Common Femoral Vein Deep Femoral Vein Greater Saphenous Vein * Femoral Vein Popliteal Vein Small Saphenous Vein * Proximal Calf Veins (* superficial vessels) FINDINGS: Grayscale, color doppler, spectral doppler imaging performed of the deep veins of the lower extremities. There is normal flow, compressibility, vascular waveforms. IMPRESSION: NEGATIVE FOR DVT, LEFT LOWER EXTREMITY.
== END | disposition home or self-care (01) ==
LOC: RADUSWWP 17:22
PROVIDERS: ATTEND Family Medicine
DX: M79.605 Pain in left leg (principal); D72.829 Elevated white blood cell count, unspecified; Z83.2 Family history of diseases of the blood and blood-forming organs and certain disorders involving the immune mechanism
CPT/HCPCS: 80048; 85025

== ENCOUNTER → 2019-02-28 | Outpatient (CLI) | payer OTHER ==
[2019-02-28 10:18] LABS: Basophils % (A) 1 %; Eosinophils # (A) 0.2 k/uL (0-0.7); Eosinophils % (A) 3 %; HCT 40.2 % (34.0-46.0); HGB 13.3 gm/dL (11.4-16.0); Lymphocytes # (A) 1.8 k/uL (1.0-4.8); Lymphocytes % (A) 32 %; MCH 31.4 pg (25.0-35.0); MCHC 33.1 g/dL (31.0-37.0); MCV 94.8 fL (80.0-100.0); Mean Platelet Volume 6.7; Monocytes # (A) 0.3 k/uL (0-1.0); Monocytes % (A) 5 %; Neutrophils # (A) 3.3 k/uL (1.3-7.7); Neutrophils % (A) 58 %; Platelet Count 243 k/uL (150-450); RBC 4.24 m/uL (3.80-5.40); WBC 5.7 k/uL (3.8-10.6)
[2019-02-28 15:38] LABS: Chol/HDL Ratio 2.2
[2019-02-28 15:39] LABS: African American GFR (CKD) 101.8 (60.0-200.0); Albumin 4.3 g/dL (3.80-4.90); Albumin/Globulin Ratio 2.05 (1.60-3.17); Anion Gap 7.7 mmol/L (4.00-12.00); Calcium 9.3 mg/dL (8.7-10.3); Carbon Dioxide 26.3 mmol/L (21.6-31.8); Globulin 2.1 g/dL (1.6-3.3); Potassium 4.8 mmol/L (3.5-5.5); Total Bilirubin 0.5 mg/dL (0.3-1.2); Total Protein 6.4 g/dL (6.2-8.2)
== END | disposition home or self-care (01) ==
LOC: LABWHC1 09:06
PROVIDERS: ATTEND Nurse Practitioner Women's Health
DX: Z00.00 Encounter for general adult medical examination without abnormal findings (principal); E78.00 Pure hypercholesterolemia, unspecified
CPT/HCPCS: 36415; 80053; 80061; 84439; 84443; 85025

== ENCOUNTER → 2019-10-20 | Outpatient (CLI) | payer BC ==
[2019-10-20 17:15] LABS: Cat Epith & Dander IgE >100.00 kU/L; Cockroach IgE 2.13 kU/L
[2019-10-20 17:16] LABS: Alternaria alternata IgE <0.10 kU/L; Aspergillus fumagatus IgE <0.10 kU/L; Cladosporian herbarum IgE <0.10 kU/L
[2019-10-20 17:17] LABS: Birch IgE <0.10 kU/L; Elm IgE <0.10 kU/L; Maple (Box Elder) IgE <0.10 kU/L; Oak IgE <0.10 kU/L
[2019-10-20 17:18] LABS: Ragweed,Common IgE 8.12 kU/L
[2019-10-20 17:28] LABS: Red Top (Bentgrass) IgE >100.00 kU/L
== END | disposition home or self-care (01) ==
LOC: LABWHC1 10:39
PROVIDERS: ATTEND Internal Medicine Critical Care Medicine
DX: J45.909 Unspecified asthma, uncomplicated (principal)
CPT/HCPCS: 36415; 82785; 86003

== ENCOUNTER → 2020-02-16 | Outpatient (CLI) | payer BC ==
[2020-02-16 09:36] LABS: Basophils % (A) 1 %; Eosinophils # (A) 0.1 k/uL (0-0.7); Eosinophils % (A) 2 %; HCT 43.6 % (34.0-46.0); Lymphocytes # (A) 2.1 k/uL (1.0-4.8); Lymphocytes % (A) 32 %; MCHC 32.1 g/dL (31.0-37.0); MCV 93.4 fL (80.0-100.0); Mean Platelet Volume 7.5; Monocytes # (A) 0.3 k/uL (0-1.0); Monocytes % (A) 4 %; Neutrophils # (A) 3.8 k/uL (1.3-7.7); Neutrophils % (A) 59 %; Platelet Count 249 k/uL (150-450); RBC 4.67 m/uL (3.80-5.40); RDW 13.8 % (11.5-15.5); WBC 6.5 k/uL (3.8-10.6)
[2020-02-16 16:35] LABS: Albumin 4.4 g/dL (3.80-4.90); Albumin/Globulin Ratio 1.83 (1.60-3.17); Anion Gap 10.8 mmol/L (4.00-12.00); Calcium 9.6 mg/dL (8.7-10.3); Carbon Dioxide 25.2 mmol/L (21.6-31.8); Chol/HDL Ratio 2.64; Globulin 2.4 g/dL (1.6-3.3); LDL Cholesterol,Calculated 124.8 mg/dL (0.0-131.0); Non-African American GFR(CKD) 87.2 (60.0-200.0); Potassium 4.8 mmol/L (3.5-5.5); Total Bilirubin 0.6 mg/dL (0.2-1.2); Total Protein 6.8 g/dL (6.2-8.2); VLDL Calculation 16.2 mg/dL (5.00-40.00)
[2020-02-16 16:43] LABS: T4, Free (Free Thyroxine) 1.2 ng/dL (0.80-1.80)
== END | disposition home or self-care (01) ==
LOC: LABWHC1 08:32
PROVIDERS: ATTEND Nurse Practitioner Women's Health
DX: Z00.00 Encounter for general adult medical examination without abnormal findings (principal); Z11.59 Encounter for screening for other viral diseases; E55.9 Vitamin D deficiency, unspecified; Z79.899 Other long term (current) drug therapy
CPT/HCPCS: 36415; 80053; 80061; 82306; 84439; 84443; 85025; 86803

== ENCOUNTER → 2020-04-25 | Outpatient (CLI) | payer BC ==
--- NOTE | 2020-04-29 14:01 | MM ---
Reason for exam: screening (asymptomatic). Last mammogram was performed 2 years and 2 months ago. Physical Findings: A clinical breast exam by your physician is recommended on an annual basis and results should be correlated with mammographic findings. MG 3D Screening Mammo W/Cad Bilateral CC and MLO view(s) were taken. Prior study comparison: March 02, 2018, bilateral MG 3d screening mammo w/cad. December 21, 2017, left breast MG 3d diag mammo w/cad LT. The breast tissue is heterogeneously dense. This may lower the sensitivity of mammography. No significant changes when compared with prior studies. ASSESSMENT: Benign, BI-RAD 2 RECOMMENDATION: Routine screening mammogram of both breasts in 1 year.
== END | disposition home or self-care (01) ==
LOC: RADMAMWWP 07:17
PROVIDERS: ATTEND Family Medicine
DX: Z12.31 Encounter for screening mammogram for malignant neoplasm of breast (principal)
CPT/HCPCS: 77063; 77067

== ENCOUNTER → 2021-07-03 | Outpatient (CLI) | payer MEDICAID ==
--- NOTE | 2021-07-07 10:56 | MM ---
Reason for exam: screening (asymptomatic). Last mammogram was performed 1 year and 2 months ago. Physical Findings: A clinical breast exam by your physician is recommended on an annual basis and results should be correlated with mammographic findings. MG 3D Screening Mammo W/Cad Bilateral CC and MLO view(s) were taken. Prior study comparison: April 25, 2020, bilateral MG 3d screening mammo w/cad. March 02, 2018, bilateral MG 3d screening mammo w/cad. Diffuse bilateral round and punctate calcifications redemonstrated. No significant changes when compared with prior studies. ASSESSMENT: Benign, BI-RAD 2 RECOMMENDATION: Routine screening mammogram of both breasts in 1 year. Patient should continue monthly self breast exams. A negative report should not preclude additional follow up of suspicious palpable abnormalities.
== END | disposition home or self-care (01) ==
LOC: RADMAMWWP 09:53
PROVIDERS: ATTEND Family Medicine
DX: Z12.31 Encounter for screening mammogram for malignant neoplasm of breast (principal)
CPT/HCPCS: 77063; 77067

== ENCOUNTER → 2022-07-31 | Outpatient (CLI) | payer MEDICAID ==
[2022-07-31 14:30] LABS: HCT 46.2 % (37.2-46.3); HGB 15.1 g/dL (12.0-15.0); MCHC 32.7 g/dL (32.0-37.0); MCV 94.9 fL (80.0-97.0); Mean Platelet Volume 9.7 fL (9.5-12.2); NRBC Per 100 WBC 0 /100 WBCS (0.0-0.0); Platelet Count 201 X 10*3/uL (140-440); RBC 4.87 X 10*6/uL (4.10-5.20); RDW 13.8 % (11.5-14.5); WBC 3.31 X 10*3/uL (4.50-10.00)
[2022-07-31 16:26] LABS: Chol/HDL Ratio 2.97 Ratio; LDL Cholesterol,Calculated 160.8 mg/dL (0.0-131.0); VLDL Calculation 14.28 mg/dL (5.00-40.00)
== END | disposition home or self-care (01) ==
LOC: LABWHC1 09:01
PROVIDERS: ATTEND Obstetrics & Gynecology Obstetrics
DX: N95.1 Menopausal and female climacteric states (principal); R61 Generalized hyperhidrosis; R37 Sexual dysfunction, unspecified; R53.83 Other fatigue; R14.0 Abdominal distension (gaseous)
CPT/HCPCS: 36415; 80061; 82306; 82607; 83001; 84144; 84443; 85027

== ENCOUNTER → 2022-08-03 | Outpatient (CLI) | payer MEDICAID ==
--- NOTE | 2022-08-04 08:24 | MM ---
Reason for Exam: Screening (asymptomatic). Last mammogram was performed 1 year(s) and 1 month(s) ago. Patient History: Menarche at age 15. First Full-Term at age 26. Perimenopausal. Last menstrual period: 08/03/2022 Risk Values: Kareen 5 year model risk: 1.0%. NCI Lifetime model risk: 9.1%. Prior Study Comparison: 03/02/2018 Bilateral Screening Mammogram, [facility]. 04/25/2020 Bilateral Screening Mammogram, [facility]. 07/03/2021 Bilateral Screening Mammogram, [facility]. Tissue Density: The breast tissue is heterogeneously dense. This may lower the sensitivity of mammography. Findings: Analyzed By CAD. There is no suspicious group of microcalcifications or new suspicious mass in either breast. Diffuse bilateral round and punctate calcifications redemonstrated. Overall Assessment: Benign, BI-RAD 2 Management: Screening Mammogram of both breasts in 1 year. A clinical breast exam by your physician is recommended on an annual basis and results should be correlated with mammographic findings. Electronically signed and approved by: Jonathan Rubin D.O.
== END | disposition home or self-care (01) ==
LOC: RADMAMWWP 16:53
PROVIDERS: ATTEND Obstetrics & Gynecology Obstetrics
DX: Z12.31 Encounter for screening mammogram for malignant neoplasm of breast (principal)
CPT/HCPCS: 77063; 77067

== ENCOUNTER → 2023-10-20 | Outpatient (CLI) | payer MEDICAID ==
--- NOTE | 2023-10-21 18:59 | MM ---
Reason for Exam: Screening (asymptomatic). Last mammogram was performed 1 year(s) and 3 month(s) ago. Patient History: Menarche at age 15. First Full-Term at age 26. Perimenopausal. Last menstrual period: Risk Values: Kareen 5 year model risk: 1.0%. NCI Lifetime model risk: 8.9%. Prior Study Comparison: 04/25/2020 Bilateral Screening Mammogram, [facility]. 07/03/2021 Bilateral Screening Mammogram, [facility]. 08/03/2022 Bilateral MG 3D screening mammo w/cad, [facility]. Tissue Density: The breasts are heterogeneously dense, which may obscure small masses. Findings: Analyzed By CAD. Diffuse bilateral punctate calcifications are unchanged. Areas of bilateral asymmetric densities are also unchanged. There is no suspicious group of microcalcifications or new suspicious mass in either breast. Overall Assessment: Benign, BI-RAD 2 Management: Screening Mammogram of both breasts in 1 year. . Patient should continue monthly self-breast exams. A clinical breast exam by your physician is recommended on an annual basis. This exam should not preclude additional follow-up of suspicious palpable abnormalities. Note on Kareen scores and lifetime risk: 1. A Kareen score greater than 3% is considered moderate risk. If this is the case, consider specialist referral to assess eligibility for a risk reducing agent. 2. If overall lifetime risk for the development of breast cancer is 20% or higher, the patient may qualify for future screening with alternating mammogram and breast MRI. Electronically signed and approved by: Sam Moore M.D. Radiologist
== END | disposition home or self-care (01) ==
LOC: RADMAMWWP 07:02
PROVIDERS: ATTEND Obstetrics & Gynecology Obstetrics
DX: Z12.31 Encounter for screening mammogram for malignant neoplasm of breast (principal)
CPT/HCPCS: 77063; 77067

== ENCOUNTER → 2023-10-29 | Outpatient (CLI) | payer MEDICAID ==
[2023-10-29 08:29] LABS: INR 1.3 (<1.2); Partial Thromboplastin Time 32.2 sec (22.0-30.0); Prothrombin Time 13.5 sec (10.0-12.5)
[2023-10-29 11:06] LABS: ALT 41 U/L (8-44); AST 24 U/L (13-35); Albumin 4.5 g/dL (3.8-4.9); Albumin/Globulin Ratio 1.96 Ratio (1.60-3.17); Alkaline Phosphatase 68 U/L (41-126); BUN/Creat Ratio 14.71 Ratio (12.00-20.00); Blood Urea Nitrogen 10.3 mg/dL (9.0-27.0); Calcium 9.7 mg/dL (8.7-10.3); Carbon Dioxide 25.3 mmol/L (21.6-31.8); Chloride 102 mmol/L (96-109); Globulin 2.3 g/dL (1.6-3.3); Glucose 87 mg/dL (70-110); Potassium 4.4 mmol/L (3.5-5.5); Sodium 140 mmol/L (135-145); Total Bilirubin 0.5 mg/dL (0.3-1.2); Total Protein 6.8 g/dL (6.2-8.2)
== END | disposition home or self-care (01) ==
LOC: LABWHC1 07:09
PROVIDERS: ATTEND Orthopaedic Surgery
DX: Z01.818 Encounter for other preprocedural examination (principal); M17.11 Unilateral primary osteoarthritis, right knee; Z22.322 Carrier or suspected carrier of Methicillin resistant Staphylococcus aureus
CPT/HCPCS: 36415; 80053; 85027; 85610; 85730; 87070; 93005

== ENCOUNTER → 2023-11-06 | Outpatient (CLI) | payer MEDICAID ==
[2023-11-06 13:11] LABS: Basophils # (A) 0.04 X 10*3/uL (0.00-0.10); Basophils % (A) 0.7 %; Eosinophils # (A) 0.15 X 10*3/uL (0.04-0.35); Eosinophils % (A) 2.8 %; HCT 42.6 % (37.2-46.3); Lymphocytes % (A) 35.4 %; MCH 31.3 pg (27.0-32.0); MCHC 32.9 g/dL (32.0-37.0); MCV 95.1 FL (80.0-97.0); Mean Platelet Volume 10.6 FL (9.5-12.2); Monocytes % (A) 7.5 %; NRBC Per 100 WBC 0 X 10*3/uL (0.00-0.01); Neutrophils # (A) 2.86 X 10*3/uL (1.80-7.70); Neutrophils % (A) 53.4 %; Platelet Count 243 X 10*3/uL (140-440); RBC 4.48 X 10*6/uL (4.10-5.20); RDW 12.7 % (11.5-14.5); WBC 5.36 X 10*3/uL (4.50-10.00)
[2023-11-06 13:22] LABS: INR 0.95 sec (0.93-1.11); Partial Thromboplastin Time 30.8 sec (23.5-31.0); Prothrombin Time 10.3 sec (9.9-11.9)
[2023-11-06 13:37] LABS: BUN/Creat Ratio 13.57 Ratio (12.00-20.00); Blood Urea Nitrogen 9.5 mg/dL (9.0-27.0); Chloride 100 mmol/L (96-109); Chol/HDL Ratio 3.68 Ratio; Glucose 88 mg/dL (70-110); LDL Cholesterol,Calculated 153.4 mg/dL (0.0-131.0); Potassium 4.6 mmol/L (3.5-5.5); Sodium 137 mmol/L (135-145); VLDL Calculation 15.56 mg/dL (5.00-40.00)
[2023-11-06 13:38] LABS: ALT 27 U/L (8-44); AST 22 U/L (13-35); Albumin 4.5 g/dL (3.8-4.9); Alkaline Phosphatase 77 U/L (41-126); Calcium 9.6 mg/dL (8.7-10.3); Carbon Dioxide 25.4 mmol/L (21.6-31.8); Globulin 2.5 g/dL (1.6-3.3); Total Bilirubin 0.4 mg/dL (0.3-1.2)
== END | disposition home or self-care (01) ==
LOC: LABWHC1 08:43
PROVIDERS: ATTEND Family Medicine
DX: Z00.00 Encounter for general adult medical examination without abnormal findings (principal); Z13.31 Encounter for screening for depression; Z13.220 Encounter for screening for lipoid disorders; Z13.29 Encounter for screening for other suspected endocrine disorder; Z78.0 Asymptomatic menopausal state; J45.30 Mild persistent asthma, uncomplicated; R79.1 Abnormal coagulation profile; Z71.3 Dietary counseling and surveillance
CPT/HCPCS: 36415; 80053; 80061; 84443; 85025; 85610; 85730

== ENCOUNTER → 2023-11-24 | Outpatient (CLI) | payer MEDICAID ==
[2023-11-24 17:15] LABS: INR 0.9 (<1.2); Partial Thromboplastin Time 24.8 sec (22.0-30.0); Prothrombin Time 10.5 sec (10.0-12.5)
[2023-11-25 02:07] LABS: HCT 42.1 % (37.2-46.3); HGB 13.7 g/dL (12.0-15.0); MCH 31.5 pg (27.0-32.0); MCHC 32.5 g/dL (32.0-37.0); MCV 96.8 FL (80.0-97.0); Mean Platelet Volume 10.9 FL (9.5-12.2); NRBC Per 100 WBC 0 X 10*3/uL (0.00-0.01); Platelet Count 234 X 10*3/uL (140-440); RBC 4.35 X 10*6/uL (4.10-5.20); RDW 13.6 % (11.5-14.5); WBC 6.69 X 10*3/uL (4.50-10.00)
[2023-11-25 02:50] LABS: ALT 19 U/L (8-44); AST 21 U/L (13-35); Albumin 4.6 g/dL (3.8-4.9); Albumin/Globulin Ratio 2.09 Ratio (1.60-3.17); Alkaline Phosphatase 76 U/L (41-126); Blood Urea Nitrogen 14.4 mg/dL (9.0-27.0); Calcium 10.1 mg/dL (8.7-10.3); Carbon Dioxide 23.5 mmol/L (21.6-31.8); Chloride 103 mmol/L (96-109); Globulin 2.2 g/dL (1.6-3.3); Glucose 86 mg/dL (70-110); Potassium 4.6 mmol/L (3.5-5.5); Sodium 140 mmol/L (135-145); Total Bilirubin 0.3 mg/dL (0.3-1.2); Total Protein 6.8 g/dL (6.2-8.2)
== END | disposition home or self-care (01) ==
LOC: LABPAT 16:15
PROVIDERS: ATTEND Orthopaedic Surgery
DX: Z01.812 Encounter for preprocedural laboratory examination (principal); M17.11 Unilateral primary osteoarthritis, right knee; Z22.322 Carrier or suspected carrier of Methicillin resistant Staphylococcus aureus
CPT/HCPCS: 80053; 85027; 85610; 85730; 87070

== ENCOUNTER → 2023-12-14 | Outpatient (CLI) | payer MEDICAID ==
[2023-12-14 16:44] LABS: INR 0.9 (<1.2); Partial Thromboplastin Time 25.2 sec (22.0-30.0); Prothrombin Time 9.9 sec (10.0-12.5)
[2023-12-14 18:43] LABS: Basophils # (A) 0.04 X 10*3/uL (0.00-0.10); Basophils % (A) 0.6 %; Eosinophils # (A) 0.13 X 10*3/uL (0.04-0.35); Eosinophils % (A) 1.8 %; HCT 43.1 % (37.2-46.3); HGB 14.1 g/dL (12.0-15.0); Lymphocytes # (A) 2.42 X 10*3/uL (0.90-5.00); Lymphocytes % (A) 34.4 %; MCH 31.6 pg (27.0-32.0); MCHC 32.7 g/dL (32.0-37.0); MCV 96.6 FL (80.0-97.0); Mean Platelet Volume 10.3 FL (9.5-12.2); Monocytes # (A) 0.42 X 10*3/uL (0.20-1.00); NRBC Per 100 WBC 0 X 10*3/uL (0.00-0.01); Neutrophils # (A) 4.02 X 10*3/uL (1.80-7.70); Neutrophils % (A) 57.1 %; Platelet Count 254 X 10*3/uL (140-440); RBC 4.46 X 10*6/uL (4.10-5.20); RDW 14.5 % (11.5-14.5); WBC 7.04 X 10*3/uL (4.50-10.00)
[2023-12-14 19:28] LABS: ALT 122 U/L (8-44); AST 70 U/L (13-35); Albumin 4.6 g/dL (3.8-4.9); Albumin/Globulin Ratio 1.92 Ratio (1.60-3.17); Alkaline Phosphatase 90 U/L (41-126); BUN/Creat Ratio 20.29 Ratio (12.00-20.00); Blood Urea Nitrogen 14.2 mg/dL (9.0-27.0); Calcium 9.8 mg/dL (8.7-10.3); Carbon Dioxide 25.5 mmol/L (21.6-31.8); Chloride 103 mmol/L (96-109); Globulin 2.4 g/dL (1.6-3.3); Glucose 105 mg/dL (70-110); Sodium 141 mmol/L (135-145); Total Bilirubin 0.4 mg/dL (0.3-1.2)
== END | disposition home or self-care (01) ==
LOC: LABWHC1 16:05
PROVIDERS: ATTEND Family Medicine
DX: Z01.812 Encounter for preprocedural laboratory examination (principal)
CPT/HCPCS: 36415; 80053; 85025; 85610; 85730

== ENCOUNTER 2023-12-21 07:30 | Day surgery (SDC) | payer MEDICAID ==
[2023-12-17 10:35] VITALS: BMI 27.2
[~2023-12-21 07:30] MED LIST: ACETAMINOPHEN TAB 500 MG TAB PO PRN; HYDROmorphone 0.5 MG/0.5 ML SYRINGE IVP PRN; TRANEXAMIC 1,000 MG/100ML-NACL 1,000 MG in SALINE 1 100ML.BAG IVPB PRN
[2023-12-21] MEDS: DEXAMETHASONE SOD PHOSPHATE 4 MG/ML 1 ML VIAL IV ONE (08:26)
[2023-12-21] MEDS: ONDANSETRON 4 MG/2 ML VIAL IVP ONE (08:26)
[2023-12-21] MEDS: MELOXICAM 7.5 MG TAB PO PRN (08:26)
[2023-12-21] MEDS: GABAPENTIN 300 MG CAP PO PRN (08:26)
[2023-12-21] MEDS: LACTATED RINGERS 1,000 ML IV SCH (08:27)
[2023-12-21] MEDS: IV FLUID CONTINUATION 1,000 ML IV ONE (08:32)
[2023-12-21 08:40] LABS: ALT 43 U/L (4-34); AST 40 U/L (14-36); African American GFR (CKD) >90 (>60 ml/min/1.73 sqM); Albumin 3.9 g/dL (3.5-5.0); Alkaline Phosphatase 79 U/L (38-126); Anion Gap 6 mmol/L; Blood Urea Nitrogen 8 mg/dL (7-17); Carbon Dioxide 25 mmol/L (22-30); Chloride 107 mmol/L (98-107); Glucose 91 mg/dL (74-99); Non-African American GFR(CKD) >90 (>60 ml/min/1.73 sqM); Potassium 3.9 mmol/L (3.5-5.1); Sodium 138 mmol/L (137-145); Total Bilirubin 0.9 mg/dL (0.2-1.3); Total Protein 6.4 g/dL (6.3-8.2)
[2023-12-21] MEDS: MIDAZOLAM 2 MG/2 ML VIAL IVP ONE (08:45)
[2023-12-21] MEDS: fentaNYL (PF) 50 MCG/ML 2 ML AMP IVP ONE (08:47)
[2023-12-21] MEDS: SCOPOLAMINE 1 MG/72 HR PATCH TRANSDERM STA (09:06)
[2023-12-21] MEDS ORDERED: MAGNESIUM HYDROXIDE 2,400 MG/30 ML CUP PO PRN (09:19)
[2023-12-21] MEDS ORDERED: NA PHOS,M-B/NA PHOS,DI-BA 133 ML ENEMA RECTAL PRN (09:19)
[2023-12-21] MEDS ORDERED: ONDANSETRON 4 MG/2 ML VIAL IVP PRN (09:19)
[2023-12-21] MEDS ORDERED: NALOXONE 0.4 MG/ML 1 ML VIAL IV PRN (09:19)
[2023-12-21] MEDS ORDERED: bisacodyL 10 MG SUPP RECTAL PRN (09:19)
[2023-12-21] MEDS ORDERED: HYDROmorphone 0.5 MG/0.5 ML SYRINGE IVP PRN ×2 (09:19)
[2023-12-21] MEDS ORDERED: HYDROcodone/APAP 7.5-325MG 1 EACH TAB PO PRN (09:21)
--- NOTE | 2023-12-21 09:29 | P.ANPRN ---
Procedure Note - Anesthesia - Nerve Block Performed Right iPack Single Time Out Performed: Yes (0845) Date of Procedure: 12/21/23 Procedure Start Time: 08:52 Procedure Stop Time: 08:56 Location of Patient: PreOp Indication: Acute Post-Operative Pain, Requested by Surgeon Specifically requested for management of pain by DrJacinta: Porfirio Ramos Sedation Type: Sedate with meaningful contact maintained Preparation: Sterile Prep Position: Supine Catheter: None Needle Types: Pajunk Needle Gauge: 21 Ultrasound used to visualize needle placement: Yes Ultrasound used to observe medication spread: Yes Injectate: 0.5% Ropivacaine (see comment for volume) (15cc +10cc nacl pf) Blood Aspirated: No Pain Paresthesia on Injection Noted: No Resistance on Injection: Normal Image Stored and Saved: Yes Events: Uneventful and Well Tolerated
--- NOTE | 2023-12-21 09:29 | P.ANPRN ---
Procedure Note - Anesthesia - Nerve Block Performed Right Adductor Canal Infusion Time Out Performed: Yes (0845) Date of Procedure: 12/21/23 Procedure Start Time: 08:46 Procedure Stop Time: 08:51 Location of Patient: PreOp Indication: Acute Post-Operative Pain, Requested by Surgeon Specifically requested for management of pain by DrJacinta: Porfirio Ramos Sedation Type: Sedate with meaningful contact maintained Preparation: Sterile Prep, Sterile Dressing Position: Supine Catheter Depth at Skin (cm): 7 Catheter: Indwelling Needle Types: Pajunk Needle Gauge: 18 Ultrasound used to visualize needle placement: Yes Ultrasound used to observe medication spread: Yes Injectate: 0.5% Ropivacaine (see comment for volume) (15cc+10cc nacl pf) Blood Aspirated: No Pain Paresthesia on Injection Noted: No Resistance on Injection: Normal Image Stored and Saved: Yes Events: Uneventful and Well Tolerated
[2023-12-21] MEDS ORDERED: ROPIVACAINE 5 MG/ML 30 ML VIAL ONE (09:31)
[2023-12-21] MEDS ORDERED: MIDAZOLAM 2 MG/2 ML VIAL ONE (09:31)
[2023-12-21] MEDS ORDERED: TRANEXAMIC 1,000 MG/100ML-NACL PREMIX BAG ONE (09:31)
[2023-12-21] MEDS ORDERED: ePHEDrine 50 MG/ML 1 ML VIAL ONE (09:31)
[2023-12-21] MEDS ORDERED: PROPOFOL 10 MG/ML 20 ML VIAL IV ONE (09:31)
[2023-12-21] MEDS ORDERED: SODIUM CHLORIDE 0.9% (PF) 10 ML VIAL ONE (09:31)
[2023-12-21] MEDS ORDERED: LIDOCAINE 1% INJ 10MG/ML (20 ML MDV) ONE (09:31)
[2023-12-21] MEDS: ceFAZolin 1,000 MG in SODIUM CHLORIDE 0.9% 1,000 ML IRRIGATION ONE (09:33)
[2023-12-21] MEDS: LACTATED RINGERS 1,000 ML IV ONE (10:10)
--- NOTE | 2023-12-21 10:45 | P.OP ---
Date of Procedure: 12/21/23 Preoperative Diagnosis: Severe osteoarthritis right knee Postoperative Diagnosis: Severe osteoarthritis right knee Procedure(s) Performed: right total knee arthroplasty utilizing Dgimed Orthoaire patient specific guides Implants: Padilla & Nephew Journey II CR Oxinium cruciate retaining femoral component size 3, right Padilla & Nephew Journey nonporous tibial baseplate size 3 right Padilla & Nephew Journey II, XLPE Deep Dished articular insert, size 12 mm, Size 3-4, right Padilla & Nephew Journey Vida II resurfacing patellar component, oval, 29 mm All components were cemented using Palacos R bone cement The articulation is Oxinium on polyethylene Visionaire patient specific guides Anesthesia: spinal Surgeon: Porfirio Ramos Instrumentation Technician #1: Jessy Correia Estimated Blood Loss (ml): 40 Pathology: none sent Condition: stable Disposition: PACU Indications for Procedure: The patient's knee is end-stage, and conservative management has failed. The operation of knee replacement has been discussed at length in the office, as well as potential risks and complications. These are inclusive of, but not limited to: Infection, bleeding, scarring, discomfort, stiffness, blood vessel and nerve damage, need for further surgery, failure to relieve symptoms, persistence, recurrence, or worsening of problems, loosening, dislocation, wear, blood clot, pulmonary embolism, , gait dysfunction, stiffness, and other risks as discussed in the office. Patient elects to proceed and the consent form has been signed. Operative Findings: The operative findings are consistent with severe osteoarthritis of the right knee Description of Procedure: Patient was seen in the preoperative area and the consent was reviewed and the operative site was marked with a skin marker. The patient verified the procedure and the operative site. An adductor canal pain catheter was placed by anesthesia in the preoperative area. The patient was then brought to the operating room and given preoperative antibiotics intravenously. A gram of transexamic acid was given intravenously. A spinal anesthetic was administered by the anesthesia department. A tourniquet was placed on the upper thigh and the lower extremity was prepped with chlorhexidine and draped in usual sterile fashion. A universal timeout was then performed which confirmed the patient's name, surgical site, ALLERGIES, and consent. The lower extremity was then exsanguinated and tourniquet was inflated to 250 mmHg. A standard anterior midline approach to the knee was performed. The skin and subcutaneous tissue were sharply dissected down to the patellar tendon. A medial parapatellar arthrotomy was then performed. The knee was then extended, the patellar was everted, and the knee was again flexed. The infra-patellar fat pad was removed in order to enhance exposure. The anterior horns of both menisci were excised, and a release was performed to the posterior medial aspect of the knee. On gross visual inspection, there was complete loss of articular cartilage in the medial and patellofemoral joint spaces. There was also significant cartilage damage in the lateral compartment. There were multiple periarticular osteophytes globally about the knee. The patient specific guide was placed on the distal femur, and pinned in place. Using the patient specific guide, the distal femoral cut was performed. The cutting block was then removed and the cut was checked for symmetry. The spikes of the femoral block was then placed into the predrilled holes, and malleted into place. Two 45 mm pins were then placed into the fixation holes on the cutting block. An christal wing was then used to ensure there would be no notching with the anterior cut. The anterior condyles were cut without notching. The anterior chord cut was then performed, followed by the posterior cut, posterior chamfer cut, and the anterior chamfer cut. The collateral ligaments were protected during the entire process. The cutting block was then removed. Any remaining bone and osteophytes were removed from the femur with a Ronguer. The femoral canal was plugged with autologous bone. Attention was then directed to the tibia. The remaining ACL was removed with a Ronguer, and the tibia was then gently subluxed forward with a large bent knee retractor. Any remaining menisci were excised. The posterior lateral corner was cauterized in order to coagulate the lateral geniculate artery. The patient specific guide for the tibia was then placed and was held in place with pins. Pinholes were then placed for rotation of the tibial component as well. Proximal tibia was then cut and sized. The femoral trial was placed. A narrow saw blade was then used to remove the anterior intracondylar femoral bone. The CR notch trial was then placed. The tibial trial was placed with the appropriate-sized insert. The knee was able to fully extend and flex to 130 and was stable throughout all range of motion. The knee was then extended and the patella was everted. Patella was then measured, and then using an osteotomy guide, the patella was cut at the appropriate level. The patella was then measured and drilled and the patella trial was then placed. The knee was then taken through range of motion with the patella trial and the patella tracked normally using the no thumbs technique.. The knee was then extended patella trial was then removed and the patella was everted. Knee was then flexed and lug holes were drilled through the femoral trial and the femoral trial was then removed. The tibial was then re-exposed, and the tibial broach guide was then pinned in place after it was set for the appropriate rotation to allow for the most coverage without overhang. The tibia was then reamed and broached. After the cemented hardened, the tourniquet was released and hemostasis was obtained. A second gram of transexamic acid was given intravenously. The knee was again irrigated. The knee was again taken through range of motion and found to be stable throughout all range of motion of 0-130, and the patella tracked normally. The fascia was then closed with 0 Vicryl followed by #2 strata fix suture. The subcutaneous tissue was closed with 3-0 Vicryl and 3-0 strata fix. Exofin glue was used for the skin and placed with the knee in flexion. After the glue had dried, and Optafoam silver impregnated dressing was applied. A lightly compressive dressing was applied using web roll and Francois wrap. Patient was then transferred to the stretcher and taken to recovery room in stable condition. Sponge and needle counts were correct. The quality assistant JAGJIT Tai was required due the complexity surgery and the need for a skilled insurance assistant. She assisted in positioning, draping, retraction, and closure of the wound.
[2023-12-21] MEDS: ROPIVACAINE 1,100 MG, SODIUM CHLORIDE 0.9% 500 ML 330 ML, EMPTY PAIN BALL 1 EACH MISCELLANE PRN (11:29)
--- NOTE | 2023-12-21 11:49 | XR ---
EXAMINATION TYPE: XR knee limited RT DATE OF EXAM: 12/21/2023 11:32 AM CLINICAL INDICATION:Female, 52 years old with history of Evaluation for Postop abnormality and alignm ent; [facility] COMPARISON: None. TECHNIQUE: XR knee limited RT; examined in Frontal, lateral projections. FINDINGS: Status post total knee arthroplasty changes with hardware in appropriate alignment and in tact. No evidence of fracture. Subcutaneous lucencies and lucencies within the joint consistent with surgical changes. IMPRESSION: Status post total knee arthroplasty changes with hardware intact and appropriate alignment. No fractu res identified.
[2023-12-21] MEDS: HYDROcodone/APAP 7.5-325MG 1 EACH TAB PO PRN (14:17)
[2023-12-21] MEDS: SODIUM CHLORIDE 0.9% 1,000 ML IV SCH (14:18)
[2023-12-21] MEDS ORDERED: NON FORMULARY DRUG (Levalbuterol Hfa Inhaler 200 PUFF/9 GM Inhaler) INHALATION PRN (15:51)
[2023-12-21] MEDS ORDERED: PANTOPRAZOLE 40 MG TABLET PO PRN (15:51)
[2023-12-21] MEDS: SYMBICORT 160-4.5 MCG INHALER INHALATION SCH (15:59)
[2023-12-21] MEDS: ALBUTEROL HFA INHALER INHALATION PRN (16:02)
[2023-12-21] MEDS: LORATADINE 10 MG TAB PO SCH (16:06)
[2023-12-21] MEDS: HYDROmorphone 1 MG/ML 1 ML SYRINGE IVP PRN (18:27)
[2023-12-21] MEDS: ASPIRIN 325 MG TAB PO SCH (20:20)
[2023-12-21] MEDS: MONTELUKAST 10 MG TAB PO SCH (20:20)
[2023-12-21] MEDS: SENNOSIDES-DOCUSATE SODIUM 1 EACH TAB PO SCH (20:20)
[2023-12-22 07:16] VITALS: BP 106/69; PULSE 77; RESP 16; TEMP 97.7
--- NOTE | 2023-12-22 07:25 | P.DS ---
Providers Expected date of discharge: 12/22/23 Attending physician: Porfirio Ramos Consults: 12/21/23 09:19 Consult Physician Routine Consulting Provider: Rodríguez Lindsey Consult Reason/Comments: medical management Do you want consulting provider notified?: Yes Primary care physician: Rodríguez Lindsey - Discharge Diagnosis(es) (1) Primary localized osteoarthritis of right knee Current Visit: Yes Status: Acute (2) Status post total right knee replacement Current Visit: Yes Status: Acute Hospital Course: This is a 52-year-old female who was last seen with complaint of continued right knee pain. The patient has a known history of degenerative arthritis of the right knee and presents to discuss surgical options. After discussion and consideration the patient elects to proceed with total right knee arthroplasty. The patient is seen preoperatively by her primary care physician and cleared for surgery. The patient is admitted to [facility] for total right knee arthroplasty. The procedure is performed without complication or sequelae. Patient is doing well postoperatively. Vital signs are stable at discharge. Labs are stable at discharge. the patient is ambulating well with walker with minimal assistance. The patient is discharged to home on postop day # 1 pending medical clearance. Please see orders and refer to the med rec for accurate list of medications. Patient Condition at Discharge: Good Plan - Discharge Summary Discharge Rx Participant: Yes New Discharge Prescriptions: New Aspirin 325 mg PO BID #60 tab HYDROcodone/APAP 7.5-325MG [Sunflower 7.5-325] 1 - 2 tab PO Q6H PRN #32 tab PRN Reason: Pain Sennosides [Senokot] 2 tab PO DAILY PRN #60 tablet PRN Reason: Constipation No Action Cetirizine HCl [Zyrtec] 10 mg PO DAILY Fluticasone Propion/Salmeterol [Advair 500-50 Diskus] 1 puff INHALATION RT- BID #1 blst.w.dev Montelukast [Singulair] 10 mg PO HS #30 tab Levalbuterol Hfa Inhaler [Xopenex Hfa Inhaler] 1 puff INHALATION RT-Q6H PRN #1 inhaler PRN Reason: Shortness Of Breath Albuterol Sulfate [Ventolin HFA] 2 puff INHALATION Q4H PRN PRN Reason: Dyspnea Progesterone, Micronized [Progesterone] 0 mg PO HS Pantoprazole Sodium 1 tab PO DAILY PRN PRN Reason: Indigestion Discharge Medication List Cetirizine HCl [Zyrtec] 10 mg PO DAILY 11/01/13 [History] Fluticasone Propion/Salmeterol [Advair 500-50 Diskus] 1 puff INHALATION RT-BID #1 blst.w.dev 10/13/18 [Rx] Levalbuterol Hfa Inhaler [Xopenex Hfa Inhaler] 1 puff INHALATION RT-Q6H PRN #1 inhaler 10/13/18 [Rx] Montelukast [Singulair] 10 mg PO HS #30 tab 10/13/18 [Rx] Albuterol Sulfate [Ventolin HFA] 2 puff INHALATION Q4H PRN 09/01/22 [History] Pantoprazole Sodium 1 tab PO DAILY PRN 09/07/22 [History] Progesterone, Micronized [Progesterone] 0 mg PO HS 12/17/23 [History] Aspirin 325 mg PO BID #60 tab 12/21/23 [Rx] HYDROcodone/APAP 7.5-325MG [Sunflower 7.5-325] 1 - 2 tab PO Q6H PRN #32 tab 12/21/23 [Rx] Sennosides [Senokot] 2 tab PO DAILY PRN #60 tablet 12/21/23 [Rx] Follow up Appointment(s)/Referral(s): Porfirio Ramos DO [Doctor of Osteopathic Medicine] - 2 Weeks Activity/Diet/Wound Care/Special Instructions: Weightbearing as tolerated with a walker. CPM 5-6h daily as tolerated. Leave dressing intact. Dressing may be removed by home care nurse or by patient in 7 days. Then change dressing twice daily until follow up. May shower with initial dressing intact and after removal. If dressing become saturated, please remove. Recommend use of compression stockings daily until follow up to help prevent swelling and blood clots. May remove at night before sleeping. Please take aspirin 325mg twice daily for 30 days to prevent blood clots. Please follow up with [facility] and call with any questions or concerns, . Discharge Disposition: HOME WITH HOME HEALTH SERVICES
--- NOTE | 2023-12-22 07:51 | P.PN ---
Progress Note - Text Progress Note Date: 12/22/23 (8195) Anesthesiology Postop day 1 status post total knee arthroplasty with adductor canal catheter. Patient doing well. VAS 4 out of 10. Gross strength intact in lower extremity. Afebrile. Denies alterations in sensorium. Catheter site intact. Heart regular rate Lungs nonlabored Abdomen nondistended Assessment: Postop day 1 status post total knee arthroplasty with adductor canal catheter Plan: 1.All questions answered. Maintain catheter 2 more days with patient removal at home. Instructions to be given at discharge. 2.This note was dictated using Xray [employer] software. Please be advised there is a potential for misspellings or errors in supply chain engineer.
[2023-12-22 08:38] LABS: Basophils # (A) 0.02 X 10*3/uL (0.00-0.10); Basophils % (A) 0.2 %; Eosinophils # (A) 0.01 X 10*3/uL (0.04-0.35); Eosinophils % (A) 0.1 %; HCT 34.9 % (37.2-46.3); HGB 10.9 g/dL (12.0-15.0); Lymphocytes # (A) 1.78 X 10*3/uL (0.90-5.00); Lymphocytes % (A) 21.9 %; MCH 31.1 pg (27.0-32.0); MCHC 31.2 g/dL (32.0-37.0); MCV 99.7 FL (80.0-97.0); Mean Platelet Volume 10.7 FL (9.5-12.2); Monocytes # (A) 0.64 X 10*3/uL (0.20-1.00); Monocytes % (A) 7.9 %; NRBC Per 100 WBC 0 X 10*3/uL (0.00-0.01); Neutrophils # (A) 5.65 X 10*3/uL (1.80-7.70); Neutrophils % (A) 69.7 %; Platelet Count 211 X 10*3/uL (140-440); RDW 14.8 % (11.5-14.5); WBC 8.12 X 10*3/uL (4.50-10.00)
--- NOTE | 2023-12-22 10:57 | P.CONS ---
History of Present Illness - Reason for Consult Consult date: 12/22/23 Medical management, asthma Requesting physician: Porfirio Ramos - Chief Complaint Right knee pain, degenerative arthritis - History of Present Illness This is a pleasant 52-year-old female admitted with ongoing right knee pain, osteoarthritis of right knee, status post elective total right knee arthroplasty. Tolerated procedure well. Ambulated with walker, completed st airs with PT. pain controlled with current medication regimen.passing flatus. Denies chest pain, palpitations or shortness of breath. Maintaining O2 sats in the mid to high 90s on room air. Prior to surgery hemoglobin 14.1, post surgery hemoglobin 10.9. Denies lightheadedness, dizziness or focal deficits.Minimally elevated LFTs, trending down from prior outpatient labs, suspect viral induced. Review of Systems ROS Statement: Those systems with pertinent positive or pertinent negative responses have been documented in the HPI. ROS Other: All systems not noted in ROS Statement are negative. Past Medical History Past Medical History: Asthma Additional Past Medical History / Comment(s): Severe persistent bronchial asthma History of Any Multi-Drug Resistant Organisms: None Reported Past Surgical History: Orthopedic Surgery, Uterine Ablation Additional Past Surgical History / Comment(s): Right Knee Arthroscopic surgery 2 Past Anesthesia/Blood Transfusion Reactions: Motion Sickness Past Psychological History: No Psychological Hx Reported Smoking Status: Never smoker Past Alcohol Use History: Heavy Additional Past Alcohol Use History / Comment(s): couple drinks on the weekend that averages out to about 1-2 a day Past Drug Use History: None Reported - Past Family History Mother Family Medical History: Cancer Additional Family Medical History / Comment(s): hx. mom-lung Father Family Medical History: Coronary Artery Disease (CAD), CVA/TIA Medications and Allergies Home Medications Medication Instructions Recorded Confirmed Type Cetirizine HCl [Zyrtec] 10 mg PO DAILY 11/01/13 12/17/23 History Fluticasone Propion/Salmeterol 1 puff INHALATION RT-BID #1 10/13/18 12/21/23 Rx [Advair 500-50 Diskus] blst.w.dev Levalbuterol Hfa Inhaler [Xopenex 1 puff INHALATION RT-Q6H PRN #1 10/13/18 12/17/23 Rx Hfa Inhaler] inhaler Montelukast [Singulair] 10 mg PO HS #30 tab 10/13/18 12/17/23 Rx Albuterol Sulfate [Ventolin HFA] 2 puff INHALATION Q4H PRN 09/01/22 12/17/23 History Pantoprazole Sodium 1 tab PO DAILY PRN 09/07/22 12/17/23 History Progesterone, Micronized 0 mg PO HS 12/17/23 12/21/23 History [Progesterone] Aspirin 325 mg PO BID #60 tab 12/21/23 Rx HYDROcodone/APAP 7.5-325MG [[place] 1 - 2 tab PO Q6H PRN #32 tab 12/21/23 Rx 7.5-325] Sennosides [Senokot] 2 tab PO DAILY PRN #60 tablet 12/21/23 Rx Allergies Allergy/AdvReac Type Severity Reaction Status Date / Time No Known Allergies Allergy Verified 12/21/23 07:49 Physical Exam Vitals: Vital Signs Temp Pulse Resp BP Pulse Ox 12/22/23 07:15 97.7 F 77 16 106/69 94 L 12/22/23 02:00 97.9 F 69 121/79 98 12/21/23 20:00 97.9 F 92 116/63 97 12/21/23 14:09 98.2 F 79 17 135/88 97 12/21/23 13:20 84 18 138/80 97 12/21/23 12:50 87 18 126/72 98 12/21/23 12:20 81 16 127/69 96 12/21/23 12:00 78 16 128/67 96 12/21/23 11:45 77 16 123/63 97 12/21/23 11:30 65 16 126/66 97 12/21/23 11:15 91 16 137/74 96 12/21/23 11:03 97.5 F L 111 H 14 135/76 96 Intake and Output 12/21/23 12/22/23 12/22/23 22:59 06:59 14:59 Intake Total 1250 Balance 1250 Intake: Intake, IV Titration 1250 Amount Sodium Chloride 0.9% 1, 1200 000 ml @ 100 mls/hr IV . Q10H [facility] Rx#:[id number] ceFAZolin 2 gm In Sodium 50 Chloride 0.9% 50 ml @ 100 mls/hr IVPB ONCE PRN Rx# :[id number] Other: Voiding Method Toilet # Voids 2 4 PHYSICAL EXAM: VITAL SIGNS: [As above] GENERAL: Pleasant, alert and oriented x 3, sitting up in bed, no acute distress HEENT: Normocephalic, atraumatic,conjunctivae normal. eyes normal. MMM. NECK: Supple, no JVD. No LNs CARDIOVASCULAR: S1, S2 regular. No murmur RESPIRATION: Unlabored, equal air entry, CTA, no wheezing. ABDOMEN: Soft, nondistended, nontender . No guarding. no masses palpable. No ascites, No hepatosplenomegaly.Bowel sounds heard. Extremities: Right lower extremity dressing clean dry and intact with ice, minimal edema. No cyanosis, no clubbing, no calf pain. Positive DP pulse NERVOUS SYSTEM: Cranial N 2-12 grossly normal. No focal deficits. Strength and sensation grossly intact.. Skin: Warm and dry, no rash Results CBC & Chem 7: 12/22/23 03:36 12/21/23 08:21 Labs: Abnormal Lab Results - Last 24 Hours (Table) 12/22/23 Range/Units 03:36 RBC 3.50 L (4.10-5.20) X 10*6/uL Hgb 10.9 L (12.0-15.0) g/dL Hct 34.9 L (37.2-46.3) % MCV 99.7 H (80.0-97.0) FL MCHC 31.2 L (32.0-37.0) g/dL RDW 14.8 H (11.5-14.5) % Eosinophils # 0.01 L (0.04-0.35) X 10*3/uL Assessment and Plan Assessment: Right knee osteoarthritis, status post total right knee arthroplasty Acute postoperative anemia, expected outcome of surgery Chronic mild intermittent asthma, stable Morbid obesity, BMI 36 Minimally elevated LFTs, trending down from prior outpatient labs, suspect viral induced. Plan: Continue on current medication regimen ,monitoring and symptomatic treatment. Pain management, DVT prophylaxis as per orthopedic surgery. Aggressive pulmonary toileting with incentive spirometer reinforced, in addition to Symbicort, albuterol inhaler and Singulair.Continue incentive spirometer every hour x 10 while awake x [facility] .medically cleared for discharge. Follow-up with PCP in 1 week. Thank you for the consult. The impression and plan of care has been dictated as directed. : I performed a history and examination of this patient, discussed the same with the dictator. I agree with the dictator's note ,documented as a scribe. Any additional findings or plans will be noted.
== END 2023-12-22 12:18 | disposition home health service (06) ==
LOC: OR 07:30 → 4SSUR 11:01 → OR 12-22 12:18
PROVIDERS: ATTEND Orthopaedic Surgery
DX: M17.11 Unilateral primary osteoarthritis, right knee (principal); G89.18 Other acute postprocedural pain; J45.50 Severe persistent asthma, uncomplicated; Z87.891 Personal history of nicotine dependence; Z79.51 Long term (current) use of inhaled steroids; Z79.899 Other long term (current) drug therapy; Z79.82 Long term (current) use of aspirin
CPT/HCPCS: 94640 ×3; 97161; 64999; 64448; 80053; 85025; 73560; 27447; C1713; C1776; C1751; J2250; J1100; J0690 ×3; J2405; J3010; J1170 ×2; J2795